=== PATIENT | male | born 1970 | race Two or more races ===

== ENCOUNTER 2019-05-01 17:48 | Inpatient (IN) | payer SELFPAY ==
[~2019-05-01] VITALS: Ht 172.7 cm; Wt 72.6 kg
[2019-05-01] MEDS ORDERED: MORPHINE SULFATE 4 MG/ML VIAL. IV/SQ PRN (20:30)
--- NOTE | 2019-05-01 20:36 | PHYS DOC ---
Past Medical History Past Medical History: Arthritis Past Surgical History: No Surgical History Alcohol Use: None Drug Use: None Adult General Chief Complaint Chief Complaint: OTHER COMPLAINTS HPI HPI Patient is a 48-year-old male who presents with complaint of pain and swelling of scrotum along with lower back pain that has been ongoing for about the last month. Patient states his symptoms are progressively worsening. He states that the swelling in the scrotal area goes down when he lays down and gets worse when he is upright. He currently rates his pain to be about a 6 out of 10. He denies any nausea or vomiting and has had no diarrhea. Patient denies any fever.[] Review of Systems Review of Systems Constitutional: Denies fever or chills [] Respiratory: Denies cough or shortness of breath [] Cardiovascular: No additional information not addressed in HPI [] GI: Complains of lower abdominal pain without vomiting or diarrhea [] : Admits to dysuria and scrotal swelling without hematuria [] Musculoskeletal: Complains of lower back pain [] All other systems were reviewed and found to be within normal limits, except as documented in this note. Current Medications Current Medications Current Medications Medications (Trade) Dose Ordered Sig/Harley Start Time Stop Time Status Last Admin Dose Admin Lorazepam (Ativan Inj) 1 mg 1X ONCE 05/01/19 23:00 05/01/19 23:01 Morphine Sulfate (Morphine Sulfate) 4 mg PRN Q15MIN PRN 05/01/19 20:30 05/02/19 20:29 05/01/19 21:17 4 MG Ondansetron HCl (Zofran) 4 mg 1X ONCE 05/01/19 20:45 05/01/19 20:46 DC 05/01/19 21:17 4 MG Allergies Allergies Allergies Coded Allergies Type Severity Reaction Last Updated Verified No Known Drug Allergies 05/01/19 No Physical Exam Physical Exam Constitutional: Well developed, well nourished, no acute distress, non-toxic appearance. [] HENT: Normocephalic, atraumatic, bilateral external ears normal, oropharynx moist, no oral exudates, nose normal. [] Eyes: PERRLA, EOMI, conjunctiva normal, no discharge. [] Neck: Normal range of motion, no tenderness, supple, no stridor. [] Cardiovascular:Heart rate regular rhythm, no murmur [] Lungs & Thorax: Bilateral breath sounds clear to auscultation [] Abdomen: Bowel sounds normal, soft, with suprapubic tenderness. Rectal exam is nontender [] Skin: Warm, dry, no erythema, no rash. [] : Markedly enlarged scrotum which transilluminates with light, consistent with large hydrocele. [] Extremities: No tenderness, no cyanosis, no clubbing, ROM intact, no edema. [] Neurologic: Alert and oriented X 3, no focal deficits noted. [] Current Patient Data Vital Signs Vital Signs Date Time Temp Pulse Resp B/P (MAP) Pulse Ox O2 Delivery O2 Flow Rate FiO2 05/01/19 21:17 Room Air 05/01/19 19:37 97.7 64 16 128/81 (97) 100 97.7 Lab Values Laboratory Tests Test 05/01/19 20:10 05/01/19 20:37 Urine Collection Type Void Urine Color Yellow Urine Clarity Clear Urine pH 5.5 Urine Specific [place] 1.020 Urine Protein Negative mg/dL (NEG-TRACE) Urine Glucose (UA) Negative mg/dL (NEG) Urine Ketones (Stick) Negative mg/dL (NEG) Urine Blood Negative (NEG) Urine Nitrite Negative (NEG) Urine Bilirubin Negative (NEG) Urine Urobilinogen Dipstick 0.2 mg/dL (0.2 mg/dL) Urine Leukocyte Esterase Negative (NEG) Urine RBC 0 /HPF (0-2) Urine WBC 5-10 /HPF (0-4) Urine Squamous Epithelial Cells Occ /LPF Urine Bacteria 0 /HPF (0-FEW) Urine Mucus Marked /LPF White Blood Count 6.4 x10^3/uL (4.0-11.0) Red Blood Count 3.91 x10^6/uL (4.30-5.70) L Hemoglobin 11.7 g/dL (13.0-17.5) L Hematocrit 34.3 % (39.0-53.0) L Mean Corpuscular Volume 88 fL (79-100) Mean Corpuscular Hemoglobin 30 pg (25-35) Mean Corpuscular Hemoglobin Concent 34 g/dL (31-37) Red Cell Distribution Width 17.1 % (11.5-14.5) H Platelet Count 294 x10^3/uL (140-400) Neutrophils (%) (Auto) 73 % (31-73) Lymphocytes (%) (Auto) 15 % (24-48) L Monocytes (%) (Auto) 9 % (0-9) Eosinophils (%) (Auto) 1 % (0-3) Basophils (%) (Auto) 1 % (0-3) Neutrophils # (Auto) 4.7 x10^3/uL (1.8-7.7) Lymphocytes # (Auto) 1.0 x10^3/uL (1.0-4.8) Monocytes # (Auto) 0.6 x10^3/uL (0.0-1.1) Eosinophils # (Auto) 0.1 x10^3/uL (0.0-0.7) Basophils # (Auto) 0.1 x10^3/uL (0.0-0.2) Sodium Level 141 mmol/L (136-145) Potassium Level 4.5 mmol/L (3.5-5.1) Chloride Level 105 mmol/L (98-107) Carbon Dioxide Level 25 mmol/L (21-32) Anion Gap 11 (6-14) Blood Urea Nitrogen 22 mg/dL (8-26) Creatinine 2.0 mg/dL (0.7-1.3) H Estimated GFR (Cockcroft-Gault) 35.5 BUN/Creatinine Ratio 11 (6-20) Glucose Level 81 mg/dL (70-99) Calcium Level 9.5 mg/dL (8.5-10.1) Total Bilirubin 0.3 mg/dL (0.2-1.0) Aspartate Amino Transferase (AST) 31 U/L (15-37) Alanine Aminotransferase (ALT) 16 U/L (16-63) Alkaline Phosphatase 115 U/L (46-116) Total Protein 7.0 g/dL (6.4-8.2) Albumin 3.2 g/dL (3.4-5.0) L Albumin/Globulin Ratio 0.8 (1.0-1.7) L Lipase 71 U/L (73-393) L Prostate Specific Antigen 0.95 ng/mL (0.00-4.00) Laboratory Tests 05/01/19 20:37 Laboratory Tests 05/01/19 20:37 EKG EKG [] Radiology/Procedures Radiology/Procedures [] Impressions: PROCEDURE: CT ABDOMEN PELVIS WO CONTRAST CT ABDOMEN PELVIS WO CONTRAST INDICATION: Scrotal swelling and lower abdominal/back pain EXAM: Noncontrast CT of the abdomen and pelvis. Coronal and sagittal reformatted images were performed. PQRS compliance statement: One or more of the following individualized dose reduction techniques were utilized for this examination: 1. Automated exposure control 2. Adjustment of the mA and/or kV according to patient size 3. Use of iterative reconstruction technique COMPARISON: None FINDINGS: No free air, free fluid, or fluid collection. Lower chest: The visualized lower lungs are aerated. No pleural or pericardial effusion. ABDOMEN: Liver: The noncontrast liver is homogeneous in attenuation. Gallbladder and biliary: Normal gallbladder without radiopaque stone. Normal caliber bile ducts. Spleen: Normal spleen. Pancreas: The noncontrast pancreas is homogeneous in attenuation without peripancreatic inflammatory changes. Adrenal glands: Normal adrenal glands. Kidneys and ureters: No opaque urinary calculi. Normal kidneys and ureters. GI tract: The stomach is decompressed and poorly evaluated. Normal caliber small bowel and colon. Normal appendix. Vascular structures: Normal caliber abdominal aorta. Lymph nodes: Extensive inguinal, iliac chain, pelvic sidewall, and retroperitoneal lymphadenopathy with insurance claims representative lymph nodes as follows: Enlarged right para-aortic lymph node measuring 2.2 x 1.4 cm (series 2 image 30), enlarged right iliac chain lymph node measuring 2.0 x 2.4 cm (image 65). PELVIS: Genitourinary system: Asymmetric irregular thickening of the posterior bladder. SKELETAL STRUCTURES AND SOFT TISSUES: Infiltrative lytic process with destruction of much of the left iliac bone. Asymmetric enlargement of the left iliac is muscle. Mixed lytic and sclerotic lesion in the L4 vertebral body. Scrotal edema and/or hydroceles. IMPRESSION: 1. Marked asymmetric thickening and irregularity of the posterior bladder, concerning for primary bladder neoplasm. 2. 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 Additional small mixed lytic and sclerotic lesion in the L4 vertebral body, which might also represent osseous metastatic disease. Attention on follow-up imaging. 3. Extensive inguinal, iliac chain, pelvic sidewall, and retroperitoneal lymphadenopathy likely representing metastatic disease. Findings were called to the emergency department at 10:15 PM on 05/01/2019. FOR INTERNAL CODING PURPOSES RESULT CODE: (C) Electronically signed by: Hari Dunn MD (05/01/2019 10:24 PM) Course & Med Decision Making Course & Med Decision Making Pertinent Labs and Imaging studies reviewed. (See chart for details) [] Dragon Disclaimer Dragon Disclaimer This electronic medical record was generated, in whole or in part, using a voice recognition dictation system. Departure Departure Impression: Primary Impression: Bladder mass Additional Impressions: Lytic bone lesions on xray Hydrocele in adult Disposition: 09 ADMITTED INPATIENT Admitting Physician: HIMTyson Condition: GOOD Referrals: NO PCP (PCP) Problem Qualifiers JO ANN OAKLEY Jr. DO May 01, 2019 20:36
[2019-05-01] MEDS ORDERED: ONDANSETRON PF 4 MG/2 ML VIAL. IV ONE (20:45)
[2019-05-01 20:46] LABS: BASO # 0.1 x10^3/uL (0.0-0.2); BASO % 1 % (0-3); EOS # 0.1 x10^3/uL (0.0-0.7); EOS % 1 % (0-3); HEMATOCRIT 34.3 % (39.0-53.0); HEMOGLOBIN 11.7 g/dL (13.0-17.5); LYMPH % 15 % (24-48); MEAN CORPUSCULAR HEMOGLOBIN 30 pg (25-35); MEAN CORPUSCULAR HGB CONC 34 g/dL (31-37); MEAN CORPUSCULAR VOLUME 88 fL (79-100); MONO # 0.6 x10^3/uL (0.0-1.1); MONO % 9 % (0-9); NEUT # 4.7 x10^3/uL (1.8-7.7); NEUT % 73 % (31-73); PLATELET COUNT 294 x10^3/uL (140-400); RED BLOOD COUNT 3.91 x10^6/uL (4.30-5.70); RED CELL DISTRIBUTION WIDTH 17.1 % (11.5-14.5); WHITE BLOOD COUNT 6.4 x10^3/uL (4.0-11.0)
[2019-05-01 20:56] LABS: CALCIUM 9.5 mg/dL (8.5-10.1); GFR 35.5; POTASSIUM 4.5 mmol/L (3.5-5.1)
[2019-05-01 21:02] LABS: ALBUMIN 3.2 g/dL (3.4-5.0); ALBUMIN/GLOBULIN RATIO 0.8 (1.0-1.7); TOTAL BILIRUBIN 0.3 mg/dL (0.2-1.0)
[2019-05-01 21:28] LABS: BILIRUBIN,URINE NEGATIVE (NEG); COLOR,URINE YELLOW; NITRITE,URINE NEGATIVE (NEG); PH,URINE 5.5; PROTEIN,URINE NEGATIVE (NEG-TRACE); UROBILINOGEN,URINE 0.2 mg/dL (0.2 mg/dL)
[2019-05-01 21:34] LABS: CLARITY,URINE CLEAR
[2019-05-01 21:38] LABS: BACTERIA,URINE 0 /HPF (0-FEW); RBC,URINE 0 /HPF (0-2); SQUAMOUS EPITHELIAL CELL,UR OCC /LPF
--- NOTE | 2019-05-01 21:42 | RAD ---
Testicular and scrotal ultrasound History: Scrotal swelling for one month, pain for 3 days bilaterally Comparison: None. Findings: Multiple grayscale, color, and duplex spectral analysis waveform images of the testicles and scrotum are submitted. Right testicle measured 3.4 x 2 x 5 x 2.2 cm. Left testicle measured 2.9 x 2.4 x 2.1 cm. No intratesticular mass is demonstrated on either side. There is normal color flow and low resistance vascularity of interrogated intratesticular vessels bilaterally. There are small bilateral hydroceles. There is severe heterogeneity and edema of the soft tissues of the scrotum. Inferior to the testicles in the soft tissues, there is very prominent heterogeneous echogenicity with areas of hypervascularity, diffuse internal echoes present. Impression: 1. There is no evidence of intratesticular mass or testicular torsion. There is severe edema of the scrotal soft tissues, evidence of cellulitis and phlegmon, complex appearing fluid inferior to the bilateral testicles although difficult to visualize discrete wall. Electronically signed by: Hari Cuevas MD (05/01/2019 9:39 PM) [facility]
--- NOTE | 2019-05-01 22:27 | RAD ---
CT ABDOMEN PELVIS WO CONTRAST INDICATION: Scrotal swelling and lower abdominal/back pain EXAM: Noncontrast CT of the abdomen and pelvis. Coronal and sagittal reformatted images were performed. PQRS compliance statement: One or more of the following individualized dose reduction techniques were utilized for this examination: 1. Automated exposure control 2. Adjustment of the mA and/or kV according to patient size 3. Use of iterative reconstruction technique COMPARISON: None FINDINGS: No free air, free fluid, or fluid collection. Lower chest: The visualized lower lungs are aerated. No pleural or pericardial effusion. ABDOMEN: Liver: The noncontrast liver is homogeneous in attenuation. Gallbladder and biliary: Normal gallbladder without radiopaque stone. Normal caliber bile ducts. Spleen: Normal spleen. Pancreas: The noncontrast pancreas is homogeneous in attenuation without peripancreatic inflammatory changes. Adrenal glands: Normal adrenal glands. Kidneys and ureters: No opaque urinary calculi. Normal kidneys and ureters. GI tract: The stomach is decompressed and poorly evaluated. Normal caliber small bowel and colon. Normal appendix. Vascular structures: Normal caliber abdominal aorta. Lymph nodes: Extensive inguinal, iliac chain, pelvic sidewall, and retroperitoneal lymphadenopathy with key account representative lymph nodes as follows: Enlarged right para-aortic lymph node measuring 2.2 x 1.4 cm (series 2 image 30), enlarged right iliac chain lymph node measuring 2.0 x 2.4 cm (image 65). PELVIS: Genitourinary system: Asymmetric irregular thickening of the posterior bladder. SKELETAL STRUCTURES AND SOFT TISSUES: Infiltrative lytic process with destruction of much of the left iliac bone. Asymmetric enlargement of the left iliac is muscle. Mixed lytic and sclerotic lesion in the L4 vertebral body. Scrotal edema and/or hydroceles. IMPRESSION: 1. Marked asymmetric thickening and irregularity of the posterior bladder, concerning for primary bladder neoplasm. 2. 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 Additional small mixed lytic and sclerotic lesion in the L4 vertebral body, which might also represent osseous metastatic disease. Attention on follow-up imaging. 3. Extensive inguinal, iliac chain, pelvic sidewall, and retroperitoneal lymphadenopathy likely representing metastatic disease. Findings were called to the emergency department at 10:15 PM on 05/01/2019. FOR INTERNAL CODING PURPOSES RESULT CODE: (C) Electronically signed by: Hari Dunn MD (05/01/2019 10:24 PM) [id number]
[2019-05-01] MEDS ORDERED: ONDANSETRON PF 4 MG/2 ML VIAL. IV PRN (23:15)
[2019-05-02] VITALS (7 sets, daily range): BP systolic 102–119; BP diastolic 49–74
--- NOTE | 2019-05-02 00:02 | NUR ---
The patient, OPAL CARPENTER, 48 y/o, M admitted by JAREK LINARES MD, was given written information regarding hospital policies, unit procedures and contact persons. Patient was transported from ED to room 440 via bed with and daughter at bedside. RN performed a head to toe assessment at this time, VSS, afebrile and pain rated 0/10 at the moment. Bed is in lowest locked position and call light is within reach. Valuables were checked and left in the room with the patient. RN will continue to monitor patient closely.
[2019-05-02] MEDS: IV NORMAL SALINE 1000ML BAG 1,000 ML IV SCH ×5 (00:40→21:36)
[2019-05-02] MEDS: fentaNYL PF VIAL 100 MCG/2 ML VIAL IV PRN ×2 (05:44→21:36)
[2019-05-02 07:48] LABS: BASO % 1 % (0-3); EOS # 0.1 x10^3/uL (0.0-0.7); EOS % 2 % (0-3); HEMATOCRIT 34.3 % (39.0-53.0); HEMOGLOBIN 11.3 g/dL (13.0-17.5); LYMPH # 0.9 x10^3/uL (1.0-4.8); LYMPH % 16 % (24-48); MEAN CORPUSCULAR HEMOGLOBIN 29 pg (25-35); MEAN CORPUSCULAR HGB CONC 33 g/dL (31-37); MEAN CORPUSCULAR VOLUME 88 fL (79-100); MONO # 0.4 x10^3/uL (0.0-1.1); MONO % 7 % (0-9); NEUT # 4.3 x10^3/uL (1.8-7.7); NEUT % 76 % (31-73); PLATELET COUNT 280 x10^3/uL (140-400); RED BLOOD COUNT 3.89 x10^6/uL (4.30-5.70); RED CELL DISTRIBUTION WIDTH 17.6 % (11.5-14.5); WHITE BLOOD COUNT 5.7 x10^3/uL (4.0-11.0)
[2019-05-02 08:20] LABS: CALCIUM 9.2 mg/dL (8.5-10.1); GFR 35.5; POTASSIUM 4.5 mmol/L (3.5-5.1)
--- NOTE | 2019-05-02 10:37 | PDOC1 ---
History and Physical Date of Admission Date of Admission DATE: 05/02/19 TIME: 10:37 Identification/Chief Complaint Chief Complaint presented to ER with complaint of pain and swelling of scrotum along with lower back pain that has been ongoing for about the last month. states his symptoms are progressively worsening. swelling in the scrotal area goes down when he lays down and gets worse when he is upright. ct concerning for bladder mass Past Medical History Past Medical History Past Medical History Past Medical History Past Medical History: Arthritis Past Surgical History: No Surgical History Alcohol Use: None Drug Use: None Family History Family History: Hypertension Social History Smoke: No ALCOHOL: none Drugs: None Current Problem List Problem List Problems Medical Problems: (1) Bladder mass Status: Acute (2) Hydrocele in adult Status: Acute (3) Lytic bone lesions on xray Status: Acute Current Medications Current Medications Current Medications Morphine Sulfate (Morphine Sulfate) 4 mg PRN Q15MIN PRN IV/SQ PAIN GREATER THAN 3/10 Last administered on 05/01/19at 21:17; Start 05/01/19 at 20:30; Stop 05/02/19 at 20:29 Ondansetron HCl (Zofran) 4 mg 1X ONCE IV Last administered on 05/01/19at 21:17; Start 05/01/19 at 20:45; Stop 05/01/19 at 20:46; Status DC Lorazepam (Ativan Inj) 1 mg 1X ONCE IV Last administered on 05/01/19at 23:14; Start 05/01/19 at 23:00; Stop 05/01/19 at 23:01; Status DC Ondansetron HCl (Zofran) 4 mg PRN Q8HRS PRN IV NAUSEA/VOMITING 1ST CHOICE; Start 05/01/19 at 23:15; Stop 05/02/19 at 23:14 Fentanyl Citrate (Fentanyl 2ml Vial) 50 mcg PRN Q1HR PRN IV SEVERE PAIN 7-10 Last administered on 05/02/19at 05:44; Start 05/01/19 at 23:15; Stop 05/02/19 at 23:14 Sodium Chloride 1,000 ml @ 100 mls/hr Q10H IV Last administered on 05/02/19at 00:40; Start 05/01/19 at 23:30; Stop 05/02/19 at 23:29 Allergies Allergies: Coded Allergies: No Known Drug Allergies (Unverified , 05/01/19) ROS Review of System Review of Systems Review of Systems Constitutional: Denies fever or chills [] Respiratory: Denies cough or shortness of breath [] Cardiovascular: No additional information not addressed in HPI [] GI: Complains of lower abdominal pain without vomiting or diarrhea [] : Admits to dysuria and scrotal swelling without hematuria [] Musculoskeletal: Complains of lower back pain [] 14 pt systems were reviewed and found to be within normal limits, except as documented ALLERGY AND IMMUNOLOGY: No: Hives, Insect Bite Sensitivity, Itchy/Watery Eyes, Nasal Congestion, Post Nasal Drip, Seasonal Allergies, Other Hematological and Lymphatic: No: Bleeding Problems, Blood Clots, Blood Transfusions, Brusing, Night Sweats, Pallor, Swollen Lymph Nodes, Other Respiratory: No: Cough, Hemoptysis, Orthopnea, Pleuritic Pain, Shortness of breath, SOB with excertion, Sputum Changes, Stridor, Tachypnea, Wheezing, Other Cardiovascular: No Chest Pain, No Palpitations, No Orthopnea, No Paroxysmal Noc. Dyspnea, No Edema, No Lt Headedness, No Other Physical Exam Physical Exam Physical Exam Physical Exam Constitutional: Well developed, well nourished thin no acute distress, non- toxic appearance. [] HENT: Normocephalic, atraumatic, bilateral external ears normal, oropharynx denis st, no oral exudates, nose normal. [] Eyes: PERRLA, EOMI, conjunctiva normal, no discharge. [] Neck: Normal range of motion, no tenderness, supple, no stridor. [] Cardiovascular:Heart rate regular rhythm, no murmur [] Lungs & Thorax: Bilateral breath sounds clear to auscultation [] Abdomen: Bowel sounds normal, soft, with suprapubic tenderness. Rectal exam is nontender [] Skin: Warm, dry, no erythema, no rash. [] : Markedly enlarged scrotum which transilluminates with light, consistent with large hydrocele. [] Extremities: No tenderness, no cyanosis, no clubbing, ROM intact, no edema. [] Neurologic: Alert and oriented X 3, no focal deficits noted. [] General: Alert, Oriented X3, Cooperative HEENT: EOMI Heart: RRR Abdomen: Soft Extremities: No cyanosis Neuro: Normal speech, Cranial nerves 3-12 NL Psych/Mental Status: Mental status NL, Mood NL Vitals Vitals Vital Signs Date Time Temp Pulse Resp B/P (MAP) Pulse Ox O2 Delivery O2 Flow Rate FiO2 05/02/19 08:16 Room Air 05/02/19 07:00 98.8 86 16 119/70 (86) 96 98.8 Labs Labs Laboratory Tests Test 05/01/19 20:10 05/01/19 20:37 05/02/19 07:35 Urine Collection Type Void Urine Color Yellow Urine Clarity Clear Urine pH 5.5 Urine Specific [place] 1.020 Urine Protein Negative mg/dL (NEG-TRACE) Urine Glucose (UA) Negative mg/dL (NEG) Urine Ketones (Stick) Negative mg/dL (NEG) Urine Blood Negative (NEG) Urine Nitrite Negative (NEG) Urine Bilirubin Negative (NEG) Urine Urobilinogen Dipstick 0.2 mg/dL (0.2 mg/dL) Urine Leukocyte Esterase Negative (NEG) Urine RBC 0 /HPF (0-2) Urine WBC 5-10 /HPF (0-4) Urine Squamous Epithelial Cells Occ /LPF Urine Bacteria 0 /HPF (0-FEW) Urine Mucus Marked /LPF White Blood Count 6.4 x10^3/uL (4.0-11.0) 5.7 x10^3/uL (4.0-11.0) Red Blood Count 3.91 x10^6/uL (4.30-5.70) 3.89 x10^6/uL (4.30-5.70) Hemoglobin 11.7 g/dL (13.0-17.5) 11.3 g/dL (13.0-17.5) Hematocrit 34.3 % (39.0-53.0) 34.3 % (39.0-53.0) Mean Corpuscular Volume 88 fL (79-100) 88 fL (79-100) Mean Corpuscular Hemoglobin 30 pg (25-35) 29 pg (25-35) Mean Corpuscular Hemoglobin Concent 34 g/dL (31-37) 33 g/dL (31-37) Red Cell Distribution Width 17.1 % (11.5-14.5) 17.6 % (11.5-14.5) Platelet Count 294 x10^3/uL (140-400) 280 x10^3/uL (140-400) Neutrophils (%) (Auto) 73 % (31-73) 76 % (31-73) Lymphocytes (%) (Auto) 15 % (24-48) 16 % (24-48) Monocytes (%) (Auto) 9 % (0-9) 7 % (0-9) Eosinophils (%) (Auto) 1 % (0-3) 2 % (0-3) Basophils (%) (Auto) 1 % (0-3) 1 % (0-3) Neutrophils # (Auto) 4.7 x10^3/uL (1.8-7.7) 4.3 x10^3/uL (1.8-7.7) Lymphocytes # (Auto) 1.0 x10^3/uL (1.0-4.8) 0.9 x10^3/uL (1.0-4.8) Monocytes # (Auto) 0.6 x10^3/uL (0.0-1.1) 0.4 x10^3/uL (0.0-1.1) Eosinophils # (Auto) 0.1 x10^3/uL (0.0-0.7) 0.1 x10^3/uL (0.0-0.7) Basophils # (Auto) 0.1 x10^3/uL (0.0-0.2) 0.0 x10^3/uL (0.0-0.2) Sodium Level 141 mmol/L (136-145) 142 mmol/L (136-145) Potassium Level 4.5 mmol/L (3.5-5.1) 4.5 mmol/L (3.5-5.1) Chloride Level 105 mmol/L (98-107) 107 mmol/L (98-107) Carbon Dioxide Level 25 mmol/L (21-32) 24 mmol/L (21-32) Anion Gap 11 (6-14) 11 (6-14) Blood Urea Nitrogen 22 mg/dL (8-26) 24 mg/dL (8-26) Creatinine 2.0 mg/dL (0.7-1.3) 2.0 mg/dL (0.7-1.3) Estimated GFR (Cockcroft-Gault) 35.5 35.5 BUN/Creatinine Ratio 11 (6-20) Glucose Level 81 mg/dL (70-99) 75 mg/dL (70-99) Calcium Level 9.5 mg/dL (8.5-10.1) 9.2 mg/dL (8.5-10.1) Total Bilirubin 0.3 mg/dL (0.2-1.0) Aspartate Amino Transf (AST/SGOT) 31 U/L (15-37) Alanine Aminotransferase (ALT/SGPT) 16 U/L (16-63) Alkaline Phosphatase 115 U/L (46-116) Total Protein 7.0 g/dL (6.4-8.2) Albumin 3.2 g/dL (3.4-5.0) Albumin/Globulin Ratio 0.8 (1.0-1.7) Lipase 71 U/L (73-393) Prostate Specific Antigen 0.95 ng/mL (0.00-4.00) Laboratory Tests Test 05/01/19 20:10 05/01/19 20:37 05/02/19 07:35 Urine Collection Type Void Urine Color Yellow Urine Clarity Clear Urine pH 5.5 Urine Specific [place] 1.020 Urine Protein Negative mg/dL (NEG-TRACE) Urine Glucose (UA) Negative mg/dL (NEG) Urine Ketones (Stick) Negative mg/dL (NEG) Urine Blood Negative (NEG) Urine Nitrite Negative (NEG) Urine Bilirubin Negative (NEG) Urine Urobilinogen Dipstick 0.2 mg/dL (0.2 mg/dL) Urine Leukocyte Esterase Negative (NEG) Urine RBC 0 /HPF (0-2) Urine WBC 5-10 /HPF (0-4) Urine Squamous Epithelial Cells Occ /LPF Urine Bacteria 0 /HPF (0-FEW) Urine Mucus Marked /LPF White Blood Count 6.4 x10^3/uL (4.0-11.0) 5.7 x10^3/uL (4.0-11.0) Red Blood Count 3.91 x10^6/uL (4.30-5.70) 3.89 x10^6/uL (4.30-5.70) Hemoglobin 11.7 g/dL (13.0-17.5) 11.3 g/dL (13.0-17.5) Hematocrit 34.3 % (39.0-53.0) 34.3 % (39.0-53.0) Mean Corpuscular Volume 88 fL (79-100) 88 fL (79-100) Mean Corpuscular Hemoglobin 30 pg (25-35) 29 pg (25-35) Mean Corpuscular Hemoglobin Concent 34 g/dL (31-37) 33 g/dL (31-37) Red Cell Distribution Width 17.1 % (11.5-14.5) 17.6 % (11.5-14.5) Platelet Count 294 x10^3/uL (140-400) 280 x10^3/uL (140-400) Neutrophils (%) (Auto) 73 % (31-73) 76 % (31-73) Lymphocytes (%) (Auto) 15 % (24-48) 16 % (24-48) Monocytes (%) (Auto) 9 % (0-9) 7 % (0-9) Eosinophils (%) (Auto) 1 % (0-3) 2 % (0-3) Basophils (%) (Auto) 1 % (0-3) 1 % (0-3) Neutrophils # (Auto) 4.7 x10^3/uL (1.8-7.7) 4.3 x10^3/uL (1.8-7.7) Lymphocytes # (Auto) 1.0 x10^3/uL (1.0-4.8) 0.9 x10^3/uL (1.0-4.8) Monocytes # (Auto) 0.6 x10^3/uL (0.0-1.1) 0.4 x10^3/uL (0.0-1.1) Eosinophils # (Auto) 0.1 x10^3/uL (0.0-0.7) 0.1 x10^3/uL (0.0-0.7) Basophils # (Auto) 0.1 x10^3/uL (0.0-0.2) 0.0 x10^3/uL (0.0-0.2) Sodium Level 141 mmol/L (136-145) 142 mmol/L (136-145) Potassium Level 4.5 mmol/L (3.5-5.1) 4.5 mmol/L (3.5-5.1) Chloride Level 105 mmol/L (98-107) 107 mmol/L (98-107) Carbon Dioxide Level 25 mmol/L (21-32) 24 mmol/L (21-32) Anion Gap 11 (6-14) 11 (6-14) Blood Urea Nitrogen 22 mg/dL (8-26) 24 mg/dL (8-26) Creatinine 2.0 mg/dL (0.7-1.3) 2.0 mg/dL (0.7-1.3) Estimated GFR (Cockcroft-Gault) 35.5 35.5 BUN/Creatinine Ratio 11 (6-20) Glucose Level 81 mg/dL (70-99) 75 mg/dL (70-99) Calcium Level 9.5 mg/dL (8.5-10.1) 9.2 mg/dL (8.5-10.1) Total Bilirubin 0.3 mg/dL (0.2-1.0) Aspartate Amino Transf (AST/SGOT) 31 U/L (15-37) Alanine Aminotransferase (ALT/SGPT) 16 U/L (16-63) Alkaline Phosphatase 115 U/L (46-116) Total Protein 7.0 g/dL (6.4-8.2) Albumin 3.2 g/dL (3.4-5.0) Albumin/Globulin Ratio 0.8 (1.0-1.7) Lipase 71 U/L (73-393) Prostate Specific Antigen 0.95 ng/mL (0.00-4.00) Images Images CT ABDOMEN PELVIS WO CONTRAST INDICATION: Scrotal swelling and lower abdominal/back pain EXAM: Noncontrast CT of the abdomen and pelvis. Coronal and sagittal reformatted images were performed. PQRS compliance statement: One or more of the following individualized dose reduction techniques were utilized for this examination: 1. Automated exposure control 2. Adjustment of the mA and/or kV according to patient size 3. Use of iterative reconstruction technique COMPARISON: None FINDINGS: No free air, free fluid, or fluid collection. Lower chest: The visualized lower lungs are aerated. No pleural or pericardial effusion. ABDOMEN: Liver: The noncontrast liver is homogeneous in attenuation. Gallbladder and biliary: Normal gallbladder without radiopaque stone. Normal caliber bile ducts. Spleen: Normal spleen. Pancreas: The noncontrast pancreas is homogeneous in attenuation without peripancreatic inflammatory changes. Adrenal glands: Normal adrenal glands. Kidneys and ureters: No opaque urinary calculi. Normal kidneys and ureters. GI tract: The stomach is decompressed and poorly evaluated. Normal caliber small bowel and colon. Normal appendix. Vascular structures: Normal caliber abdominal aorta. Lymph nodes: Extensive inguinal, iliac chain, pelvic sidewall, and retroperitoneal lymphadenopathy with petroleum products sales representative lymph nodes as follows: Enlarged right para-aortic lymph node measuring 2.2 x 1.4 cm (series 2 image 30), enlarged right iliac chain lymph node measuring 2.0 x 2.4 cm (image 65). PELVIS: Genitourinary system: Asymmetric irregular thickening of the posterior bladder. SKELETAL STRUCTURES AND SOFT TISSUES: Infiltrative lytic process with destruction of much of the left iliac bone. Asymmetric enlargement of the left iliac is muscle. Mixed lytic and sclerotic lesion in the L4 vertebral body. Scrotal edema and/or hydroceles. IMPRESSION: 1. Marked asymmetric thickening and irregularity of the posterior bladder, concerning for primary bladder neoplasm. 2. 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 Additional small mixed lytic and sclerotic lesion in the L4 vertebral body, which might also represent osseous metastatic disease. Attention on follow-up imaging. 3. Extensive inguinal, iliac chain, pelvic sidewall, and retroperitoneal lymphadenopathy likely representing metastatic disease. Findings were called to the emergency department at 10:15 PM on 05/01/2019. FOR INTERNAL CODING PURPOSES RESULT CODE: (C) Electronically signed by: Som Salamanca MD (05/01/2019 10:24 PM) [facility] DICTATED and SIGNED BY: SOM SALAMANCA MD DATE: 05/01/19 2224 VTE Prophylaxis Ordered VTE Prophylaxis Devices: Yes VTE Pharmacological Prophylaxi: Yes Assessment/Plan Assessment/Plan Impression: Bladder mass Marked asymmetric thickening and irregularity of the posterior bladder,concerning for primary bladder neoplasm. 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 Additional small mixed lytic and sclerotic lesion in the L4 vertebral body, which might also represent osseous metastatic disease. Attention on follow-up imaging. Extensive inguinal, iliac chain, pelvic sidewall, and retroperitoneal lymphadenopathy likely representing metastatic disease. Lytic bone lesions on xray Hydrocele renal failure anemia ADMITTED UROLOGY CONSULT IV PAIN CONTROL dvt prophylaxis gi prophylaxis nephrology consult 78 min pt exam, chart review, > 50% of time spent with exam, chart review, pt care coordination NIKKI HUIZAR MD May 02, 2019 10:37
--- NOTE | 2019-05-02 11:10 | NUR ---
Spoke with Jose at [facility] in [place], [place], pt's perferred pharmacy Re: home med list. Med list received.
[2019-05-02] MEDS ORDERED: FOLI1TAB16 PO (11:19)
[2019-05-02] MEDS ORDERED: METH25VI27 SQ (11:19)
[2019-05-02 11:29] LABS: PROTHROMBIN TIME PATIENT 13.7 SEC (11.7-14.0)
--- NOTE | 2019-05-02 11:44 | NUR ---
Assumed pt care at 1035. Pt in bed, family at bedside, call light within reach. Requesting ice chips. Routine consults called to Dr. Doherty and Dr. Reddy. Will continue to monitor.
--- NOTE | 2019-05-02 12:22 | NUR ---
SS following for discharge planning. SS reviewed pt chart. Pt is self pay pt. HCFS following for self pay status. Pt is from home with spouse and is currently on room air. No discharge needs noted at this time. SS will continue to follow for discharge planning.
[2019-05-02] MEDS: HEPARIN for SUB-Q USE 5,000 UNIT/ML VIAL. SQ SCH ×2 (14:00→21:41)
[2019-05-02] MEDS ORDERED: ZOLPIDEM 5 MG TABLET. PO PRN (16:30)
[2019-05-02] MEDS ORDERED: DOCUSATE SODIUM 100 MG CAPSULE. PO PRN (16:30)
[2019-05-02] MEDS ORDERED: MAG HYDROX/ALUMINUM HYD/SIMETH 30 ML ORAL.SUSP PO PRN (16:30)
[2019-05-02] MEDS ORDERED: ONDANSETRON PF 4 MG/2 ML VIAL. IV PRN (16:30)
[2019-05-02] MEDS ORDERED: guaiFENesin ORAL 200 MG/10 ML LIQUID. PO PRN (16:30)
[2019-05-02] MEDS ORDERED: cloNIDine HCL 0.1 MG TABLET PO PRN (16:30)
[2019-05-02] MEDS ORDERED: LORazepam 0.5 MG TABLET PO PRN (16:30)
[2019-05-02] MEDS ORDERED: 0.9 % SODIUM CHLORIDE 10 ML DISP.SYRIN. IV PRN (16:30)
[2019-05-02] MEDS: IPRATRPIUM/ALBUTEROL 0.5/2.5MG 3 ML NEBU. NEB SCH ×4 (16:30→23:10)
--- NOTE | 2019-05-02 17:12 | NUR ---
fluids non admin on EMAR. Current bag is still infusing.
[2019-05-03 03:00] VITALS: BP 103/61
--- NOTE | 2019-05-03 04:10 | NUR ---
Report received from BELKIS Humphrey and assumed care of patient at this time. Patient resting with call light within reach, will continue to monitor.
[2019-05-03] MEDS: ACETAMINOPHEN 325 MG TABLET. PO PRN ×2 (06:17→21:07)
[2019-05-03] MEDS: PANTOPRAZOLE 40 MG TABLET.DR. PO SCH (06:17)
[2019-05-03] MEDS: HEPARIN for SUB-Q USE 5,000 UNIT/ML VIAL. SQ SCH ×3 (06:22→21:16)
[2019-05-03 07:00] VITALS: BP 102/62
[2019-05-03] MEDS: IPRATRPIUM/ALBUTEROL 0.5/2.5MG 3 ML NEBU. NEB SCH ×4 (09:09→19:58)
--- NOTE | 2019-05-03 10:29 | PDOC2 ---
CONSULT Date of Consult Date of Consult DATE: 05/03/19 TIME: 10:27 Source Source: Caregiver, Chart review History of Present Illness Reason for Visit: Pt is a male, Non guinean speaking Presented to ER with complaint of pain and swelling of scrotum along with lower back pain that has been ongoing for about the last month. states his symptoms are progressively worsening. swelling in the scrotal area goes down when he lays down and gets worse when he is upright. ct concerning for bladder mass Has been taking Aleve or Advil for past 2-3 months 3-4 /day . PCP at [facility] [place] . Denies any known Hx of CKD or DM Denies any N/V/D. No CP or SOB, No urinary complaints Family History Family History: Hypertension Social History No ALCOHOL: none Drugs: None Current Problem List Problem List Problems Medical Problems: (1) Bladder mass Status: Acute (2) Hydrocele in adult Status: Acute (3) Lytic bone lesions on xray Status: Acute Current Medications Current Medications Current Medications Morphine Sulfate (Morphine Sulfate) 4 mg PRN Q15MIN PRN IV/SQ PAIN GREATER THAN 3/10 Last administered on 05/01/19at 21:17; Start 05/01/19 at 20:30; Stop 05/02/19 at 20:29; Status DC Ondansetron HCl (Zofran) 4 mg 1X ONCE IV Last administered on 05/01/19at 21:17; Start 05/01/19 at 20:45; Stop 05/01/19 at 20:46; Status DC Lorazepam (Ativan Inj) 1 mg 1X ONCE IV Last administered on 05/01/19at 23:14; Start 05/01/19 at 23:00; Stop 05/01/19 at 23:01; Status DC Ondansetron HCl (Zofran) 4 mg PRN Q8HRS PRN IV NAUSEA/VOMITING 1ST CHOICE; Start 05/01/19 at 23:15; Stop 05/02/19 at 23:14; Status DC Fentanyl Citrate (Fentanyl 2ml Vial) 50 mcg PRN Q1HR PRN IV SEVERE PAIN 7-10 Last administered on 05/02/19at 21:36; Start 05/01/19 at 23:15; Stop 05/02/19 at 23:14; Status DC Sodium Chloride 1,000 ml @ 100 mls/hr Q10H IV Last administered on 05/02/19at 12:26; Start 05/01/19 at 23:30; Stop 05/02/19 at 23:29; Status DC Heparin Sodium (Porcine) (Heparin Sodium) 5,000 unit Q8HRS SQ Last administered on 05/03/19at 06:23; Start 05/02/19 at 14:00 Pantoprazole Sodium (Protonix) 40 mg DAILYAC PO Last administered on 05/03/19at 06:23; Start 05/03/19 at 07:30 Sodium Chloride (Normal Saline Flush) 3 ml QSHIFT PRN IV AFTER MEDS AND BLOOD DRAWS; Start 05/02/19 at 16:30 Sodium Chloride 1,000 ml @ 100 mls/hr Q10H IV Last administered on 05/02/19at 21:36; Start 05/02/19 at 16:25 Ondansetron HCl (Zofran) 4 mg PRN Q4HRS PRN IV NAUSEA/VOMITING; Start 05/02/19 at 16:30 Zolpidem Tartrate (Ambien) 5 mg PRN QHS PRN PO INSOMNIA; Start 05/02/19 at 16:30 Acetaminophen (Tylenol) 650 mg PRN Q4HRS PRN PO TEMP OVER 100.4F OR MILD PAIN Last administered on 05/03/19at 06:23; Start 05/02/19 at 16:30 Al Hydroxide/Mg Hydroxide (Mylanta Plus Xs) 30 ml PRN DAILY PRN PO HEARTBURN / GAS; Start 05/02/19 at 16:30 Clonidine HCl (Catapres) 0.1 mg PRN Q6HRS PRN PO SBP>160 OR DBP>90; Start 05/02/19 at 16:30 Docusate Sodium (Colace) 100 mg PRN BID PRN PO CONSTIPATION; Start 05/02/19 at 16:30 Albuterol/ Ipratropium (Duoneb) 3 ml Q4HRS NEB Last administered on 05/03/19at 09:10; Start 05/02/19 at 16:30 Guaifenesin (Robitussin) 200 mg PRN Q4HRS PRN PO COUGH; Start 05/02/19 at 16:30 Lorazepam (Ativan) 0.5 mg PRN Q4HRS PRN PO ANXIETY / AGITATION; Start 05/02/19 at 16:30 Active Scripts Active Reported Methotrexate (Methotrexate Sodium) 25 Mg/1 Ml Vial 25 Mg SQ WEEKLY Folic Acid 1 Mg Tablet 1 Tab PO DAILY Allergies Allergies: Coded Allergies: No Known Drug Allergies (Unverified , 05/01/19) ROS Review of System Per HPI- Obtained from daughters, as Pt non guinean speaking Physical Exam Physical Exam General: NAD HEENT: OM moist Neck supple Heart: RRR Lungs CTA Abdomen: Soft, NT Extremities: No cyanosis, No edema Neuro: Normal speech, Cranial nerves 3-12 NL Psych/Mental Status: Mental status NL, Mood NL - NO Batres Skin No rash Vital Signs Vital Signs Date Time Temp Pulse Resp B/P (MAP) Pulse Ox O2 Delivery O2 Flow Rate FiO2 05/03/19 09:10 96 Room Air 05/03/19 07:00 98.2 66 20 102/62 (75) 98.2 Assessment & Plan RIKI - Baseline unknown Etiology - AIN vs ATN, Hx of NSAID use UA unremarkable,no micr hematuria or overt proteinuria CT scan Kidneys unremar kable E-Lytes stable Supportive care, IV Hydration, strict I/O Monitor, avoid Nephrotoxins Bladder mass- Marked asymmetric thickening and irregularity of the posterior bladder,concerning for primary bladder neoplasm. 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 Additional small mixed lytic and sclerotic lesion in the L4 vertebral body, which might also represent osseous metastatic disease. Extensive inguinal, iliac chain, pelvic sidewall, and retroperitoneal lymphadenopathy likely representing metastatic disease. Lytic bone lesions on xray Consult Urology/Oncology NSAID use- recently Hydrocele - Per urology Anemia- suspect sec to above Stable Hgb 11 Pre=diabetes- per patient Labs Labs Laboratory Tests Test 05/01/19 20:10 05/01/19 20:37 05/02/19 07:35 Urine Collection Type Void Urine Color Yellow Urine Clarity Clear Urine pH 5.5 Urine Specific [place] 1.020 Urine Protein Negative mg/dL (NEG-TRACE) Urine Glucose (UA) Negative mg/dL (NEG) Urine Ketones (Stick) Negative mg/dL (NEG) Urine Blood Negative (NEG) Urine Nitrite Negative (NEG) Urine Bilirubin Negative (NEG) Urine Urobilinogen Dipstick 0.2 mg/dL (0.2 mg/dL) Urine Leukocyte Esterase Negative (NEG) Urine RBC 0 /HPF (0-2) Urine WBC 5-10 /HPF (0-4) Urine Squamous Epithelial Cells Occ /LPF Urine Bacteria 0 /HPF (0-FEW) Urine Mucus Marked /LPF White Blood Count 6.4 x10^3/uL (4.0-11.0) 5.7 x10^3/uL (4.0-11.0) Red Blood Count 3.91 x10^6/uL (4.30-5.70) 3.89 x10^6/uL (4.30-5.70) Hemoglobin 11.7 g/dL (13.0-17.5) 11.3 g/dL (13.0-17.5) Hematocrit 34.3 % (39.0-53.0) 34.3 % (39.0-53.0) Mean Corpuscular Volume 88 fL (79-100) 88 fL (79-100) Mean Corpuscular Hemoglobin 30 pg (25-35) 29 pg (25-35) Mean Corpuscular Hemoglobin Concent 34 g/dL (31-37) 33 g/dL (31-37) Red Cell Distribution Width 17.1 % (11.5-14.5) 17.6 % (11.5-14.5) Platelet Count 294 x10^3/uL (140-400) 280 x10^3/uL (140-400) Neutrophils (%) (Auto) 73 % (31-73) 76 % (31-73) Lymphocytes (%) (Auto) 15 % (24-48) 16 % (24-48) Monocytes (%) (Auto) 9 % (0-9) 7 % (0-9) Eosinophils (%) (Auto) 1 % (0-3) 2 % (0-3) Basophils (%) (Auto) 1 % (0-3) 1 % (0-3) Neutrophils # (Auto) 4.7 x10^3/uL (1.8-7.7) 4.3 x10^3/uL (1.8-7.7) Lymphocytes # (Auto) 1.0 x10^3/uL (1.0-4.8) 0.9 x10^3/uL (1.0-4.8) Monocytes # (Auto) 0.6 x10^3/uL (0.0-1.1) 0.4 x10^3/uL (0.0-1.1) Eosinophils # (Auto) 0.1 x10^3/uL (0.0-0.7) 0.1 x10^3/uL (0.0-0.7) Basophils # (Auto) 0.1 x10^3/uL (0.0-0.2) 0.0 x10^3/uL (0.0-0.2) Sodium Level 141 mmol/L (136-145) 142 mmol/L (136-145) Potassium Level 4.5 mmol/L (3.5-5.1) 4.5 mmol/L (3.5-5.1) Chloride Level 105 mmol/L (98-107) 107 mmol/L (98-107) Carbon Dioxide Level 25 mmol/L (21-32) 24 mmol/L (21-32) Anion Gap 11 (6-14) 11 (6-14) Blood Urea Nitrogen 22 mg/dL (8-26) 24 mg/dL (8-26) Creatinine 2.0 mg/dL (0.7-1.3) 2.0 mg/dL (0.7-1.3) Estimated GFR (Cockcroft-Gault) 35.5 35.5 BUN/Creatinine Ratio 11 (6-20) Glucose Level 81 mg/dL (70-99) 75 mg/dL (70-99) Calcium Level 9.5 mg/dL (8.5-10.1) 9.2 mg/dL (8.5-10.1) Total Bilirubin 0.3 mg/dL (0.2-1.0) Aspartate Amino Transf (AST/SGOT) 31 U/L (15-37) Alanine Aminotransferase (ALT/SGPT) 16 U/L (16-63) Alkaline Phosphatase 115 U/L (46-116) Total Protein 7.0 g/dL (6.4-8.2) Albumin 3.2 g/dL (3.4-5.0) Albumin/Globulin Ratio 0.8 (1.0-1.7) Lipase 71 U/L (73-393) Prostate Specific Antigen 0.95 ng/mL (0.00-4.00) Prothrombin Time 13.7 SEC (11.7-14.0) Prothromb Time International Ratio 1.1 (0.8-1.1) Review All relevant outside records, renal labs, imaging studies, telemetry/EKG's were reviewed. Images Images CT abdomen without contrast-- Gallbladder and biliary: Normal gallbladder without radiopaque stone. Normal caliber bile ducts. Spleen: Normal spleen. Pancreas: The noncontrast pancreas is homogeneous in attenuation without peripancreatic inflammatory changes. Adrenal glands: Normal adrenal glands. Kidneys and ureters: No opaque urinary calculi. Normal kidneys and ureters. GI tract: The stomach is decompressed and poorly evaluated. Normal caliber small bowel and colon. Normal appendix. Vascular structures: Normal caliber abdominal aorta. Lymph nodes: Extensive inguinal, iliac chain, pelvic sidewall, and retroperitoneal lymphadenopathy with truck sales representative lymph nodes as follows: Enlarged right para-aortic lymph node measuring 2.2 x 1.4 cm (series 2 image 30), enlarged right iliac chain lymph node measuring 2.0 x 2.4 cm (image 65). PELVIS: Genitourinary system: Asymmetric irregular thickening of the posterior bladder. SKELETAL STRUCTURES AND SOFT TISSUES: Infiltrative lytic process with destruction of much of the left iliac bone. Asymmetric enlargement of the left iliac is muscle. Mixed lytic and sclerotic lesion in the L4 vertebral body. Scrotal edema and/or hydroceles. IMPRESSION: 1. Marked asymmetric thickening and irregularity of the posterior bladder, concerning for primary bladder neoplasm. 2. 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 Additional small mixed lytic and sclerotic lesion in the L4 vertebral body, which might also represent osseous metastatic disease. Attention on follow-up imaging. 3. Extensive inguinal, iliac chain, pelvic sidewall, and retroperitoneal lymphadenopathy likely representing metastatic disease. EDITA GRAHAM MD May 03, 2019 10:29
--- NOTE | 2019-05-03 10:44 | PDOC ---
PROGRESS NOTES History of Present Illness History of Present Illness VTE Prophylaxis Ordered VTE Prophylaxis Devices: Yes VTE Pharmacological Prophylaxi: Yes Assessment/Plan Assessment/Plan Impression: Bladder mass Marked asymmetric thickening and irregularity of the posterior bladder,concerning for primary bladder neoplasm. 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 Additional small mixed lytic and sclerotic lesion in the L4 vertebral body, which might also represent osseous metastatic disease. Attention on follow-up imaging. Extensive inguinal, iliac chain, pelvic sidewall, and retroperitoneal lymphadenopathy likely representing metastatic disease. Lytic bone lesions on xray Hydrocele renal failure anemia There is no evidence of intratesticular mass or testicular torsion. There is severe edema of the scrotal soft tissues, evidence of cellulitis and phlegmon, complex appearing fluid inferior to the bilateral testicles although difficult to visualize discrete wall. 05/03 Pain not well controlled, added iv dilaudid 1.5 mg q 3 hrs prn ADMITTED UROLOGY CONSULT IV PAIN CONTROL dvt prophylaxis gi prophylaxis nephrology consult ONCOLOGY CONSULT IV ANTIBIOTICS, EMPERIC 41 min pt exam, chart review, > 50% of time spent with exam, chart review, pt care coordination Vitals Vitals Vital Signs Date Time Temp Pulse Resp B/P (MAP) Pulse Ox O2 Delivery O2 Flow Rate FiO2 05/03/19 09:10 96 Room Air 05/03/19 07:00 98.2 66 20 102/62 (75) 98.2 Physical Exam Physical Exam Eyes: PERRLA, EOMI, conjunctiva normal, no discharge. [] Neck: Normal range of motion, no tenderness, supple, no stridor. [] Cardiovascular:Heart rate regular rhythm, no murmur [] Lungs & Thorax: Bilateral breath sounds clear to auscultation [] Abdomen: Bowel sounds normal, soft, with suprapubic tenderness. [] Skin: Warm, dry, no erythema, no rash. [] : Markedly enlarged scrotum which transilluminates with light, consistent with large hydrocele. [] Extremities: No tenderness, no cyanosis, no clubbing, ROM intact, no edema. [] Neurologic: Alert and oriented X 3, no focal deficits noted. [] General: Alert, Oriented X3, Cooperative HEENT: EOMI Heart: RRR Abdomen: Soft Extremities: No cyanosis Neuro: Normal speech, Cranial nerves 3-12 NL General: Alert, Oriented X3, Cooperative, mild distress Heart: Regular rate, Normal S1 Lungs: Clear Abdomen: Normal bowel sounds, Soft Extremities: No cyanosis Labs LABS Testicular and scrotal ultrasound History: Scrotal swelling for one month, pain for 3 days bilaterally Comparison: None. Findings: Multiple grayscale, color, and duplex spectral analysis waveform images of the testicles and scrotum are submitted. Right testicle measured 3.4 x 2 x 5 x 2.2 cm. Left testicle measured 2.9 x 2.4 x 2.1 cm. No intratesticular mass is demonstrated on either side. There is normal color flow and low resistance vascularity of interrogated intratesticular vessels bilaterally. There are small bilateral hydroceles. There is severe heterogeneity and edema of the soft tissues of the scrotum. Inferior to the testicles in the soft tissues, there is very prominent heterogeneous echogenicity with areas of hypervascularity, diffuse internal echoes present. Impression: 1. There is no evidence of intratesticular mass or testicular torsion. There is severe edema of the scrotal soft tissues, evidence of cellulitis and phlegmon, complex appearing fluid inferior to the bilateral testicles although difficult to visualize discrete wall. Electronically signed by: Hari Cuevas MD (05/01/2019 9:39 PM) [facility] Assessment and Plan Assessmemt and Plan Problems Medical Problems: (1) Bladder mass Status: Acute (2) Hydrocele in adult Status: Acute (3) Lytic bone lesions on xray Status: Acute Comment Review of Relevant I have reviewed the following items debra (where applicable) has been applied. Labs Laboratory Tests Test 05/01/19 20:10 05/01/19 20:37 05/02/19 07:35 Urine Collection Type Void Urine Color Yellow Urine Clarity Clear Urine pH 5.5 Urine Specific [place] 1.020 Urine Protein Negative mg/dL (NEG-TRACE) Urine Glucose (UA) Negative mg/dL (NEG) Urine Ketones (Stick) Negative mg/dL (NEG) Urine Blood Negative (NEG) Urine Nitrite Negative (NEG) Urine Bilirubin Negative (NEG) Urine Urobilinogen Dipstick 0.2 mg/dL (0.2 mg/dL) Urine Leukocyte Esterase Negative (NEG) Urine RBC 0 /HPF (0-2) Urine WBC 5-10 /HPF (0-4) Urine Squamous Epithelial Cells Occ /LPF Urine Bacteria 0 /HPF (0-FEW) Urine Mucus Marked /LPF White Blood Count 6.4 x10^3/uL (4.0-11.0) 5.7 x10^3/uL (4.0-11.0) Red Blood Count 3.91 x10^6/uL (4.30-5.70) 3.89 x10^6/uL (4.30-5.70) Hemoglobin 11.7 g/dL (13.0-17.5) 11.3 g/dL (13.0-17.5) Hematocrit 34.3 % (39.0-53.0) 34.3 % (39.0-53.0) Mean Corpuscular Volume 88 fL (79-100) 88 fL (79-100) Mean Corpuscular Hemoglobin 30 pg (25-35) 29 pg (25-35) Mean Corpuscular Hemoglobin Concent 34 g/dL (31-37) 33 g/dL (31-37) Red Cell Distribution Width 17.1 % (11.5-14.5) 17.6 % (11.5-14.5) Platelet Count 294 x10^3/uL (140-400) 280 x10^3/uL (140-400) Neutrophils (%) (Auto) 73 % (31-73) 76 % (31-73) Lymphocytes (%) (Auto) 15 % (24-48) 16 % (24-48) Monocytes (%) (Auto) 9 % (0-9) 7 % (0-9) Eosinophils (%) (Auto) 1 % (0-3) 2 % (0-3) Basophils (%) (Auto) 1 % (0-3) 1 % (0-3) Neutrophils # (Auto) 4.7 x10^3/uL (1.8-7.7) 4.3 x10^3/uL (1.8-7.7) Lymphocytes # (Auto) 1.0 x10^3/uL (1.0-4.8) 0.9 x10^3/uL (1.0-4.8) Monocytes # (Auto) 0.6 x10^3/uL (0.0-1.1) 0.4 x10^3/uL (0.0-1.1) Eosinophils # (Auto) 0.1 x10^3/uL (0.0-0.7) 0.1 x10^3/uL (0.0-0.7) Basophils # (Auto) 0.1 x10^3/uL (0.0-0.2) 0.0 x10^3/uL (0.0-0.2) Sodium Level 141 mmol/L (136-145) 142 mmol/L (136-145) Potassium Level 4.5 mmol/L (3.5-5.1) 4.5 mmol/L (3.5-5.1) Chloride Level 105 mmol/L (98-107) 107 mmol/L (98-107) Carbon Dioxide Level 25 mmol/L (21-32) 24 mmol/L (21-32) Anion Gap 11 (6-14) 11 (6-14) Blood Urea Nitrogen 22 mg/dL (8-26) 24 mg/dL (8-26) Creatinine 2.0 mg/dL (0.7-1.3) 2.0 mg/dL (0.7-1.3) Estimated GFR (Cockcroft-Gault) 35.5 35.5 BUN/Creatinine Ratio 11 (6-20) Glucose Level 81 mg/dL (70-99) 75 mg/dL (70-99) Calcium Level 9.5 mg/dL (8.5-10.1) 9.2 mg/dL (8.5-10.1) Total Bilirubin 0.3 mg/dL (0.2-1.0) Aspartate Amino Transf (AST/SGOT) 31 U/L (15-37) Alanine Aminotransferase (ALT/SGPT) 16 U/L (16-63) Alkaline Phosphatase 115 U/L (46-116) Total Protein 7.0 g/dL (6.4-8.2) Albumin 3.2 g/dL (3.4-5.0) Albumin/Globulin Ratio 0.8 (1.0-1.7) Lipase 71 U/L (73-393) Prostate Specific Antigen 0.95 ng/mL (0.00-4.00) Prothrombin Time 13.7 SEC (11.7-14.0) Prothromb Time International Ratio 1.1 (0.8-1.1) Medications Current Medications Morphine Sulfate (Morphine Sulfate) 4 mg PRN Q15MIN PRN IV/SQ PAIN GREATER THAN 3/10 Last administered on 05/01/19 21:17; Start 05/01/19 at 20:30; Stop at 20:29; Status DC Ondansetron HCl (Zofran) 4 mg 1X ONCE IV Last administered on 05/01/19 21:17; Start 05/01/19 at 20:45; Stop 05/01/19 at 20:46; Status DC Lorazepam (Ativan Inj) 1 mg 1X ONCE IV Last administered on 05/01/19 23:14; Start 05/01/19 at 23:00; Stop 05/01/19 at 23:01; Status DC Ondansetron HCl (Zofran) 4 mg PRN Q8HRS PRN IV NAUSEA/VOMITING 1ST CHOICE; Start 05/01/19 at 23:15; Stop 05/02/19 at 23:14; Status DC Fentanyl Citrate (Fentanyl 2ml Vial) 50 mcg PRN Q1HR PRN IV SEVERE PAIN 7-10 Last administered on 05/02/19 21:36; Start 05/01/19 at 23:15; Stop 05/02/19 at 23:14; Status DC Sodium Chloride 1,000 ml @ 100 mls/hr Q10H IV Last administered on 05/02/19 12:26; Start 05/01/19 at 23:30; Stop 05/02/19 at 23:29; Status DC Heparin Sodium (Porcine) (Heparin Sodium) 5,000 unit Q8HRS SQ Last administered on 05/03/19at 06:23; Start 05/02/19 at 14:00 Pantoprazole Sodium (Protonix) 40 mg DAILYAC PO Last administered on 05/03/19 06:23; Start 05/03/19 at 07:30 Sodium Chloride (Normal Saline Flush) 3 ml QSHIFT PRN IV AFTER MEDS AND BLOOD DRAWS; Start 05/02/19 at 16:30 Sodium Chloride 1,000 ml @ 100 mls/hr Q10H IV Last administered on 05/02/19 21:36; Start 05/02/19 at 16:25 Ondansetron HCl (Zofran) 4 mg PRN Q4HRS PRN IV NAUSEA/VOMITING; Start 05/02/19 at 16:30 Zolpidem Tartrate (Ambien) 5 mg PRN QHS PRN PO INSOMNIA; Start 05/02/19 at 16:30 Acetaminophen (Tylenol) 650 mg PRN Q4HRS PRN PO TEMP OVER 100.4F OR MILD PAIN Last administered on 05/03/19at 06:23; Start 05/02/19 at 16:30 Al Hydroxide/Mg Hydroxide (Mylanta Plus Xs) 30 ml PRN DAILY PRN PO HEARTBURN / GAS; Start 05/02/19 at 16:30 Clonidine HCl (Catapres) 0.1 mg PRN Q6HRS PRN PO SBP>160 OR DBP>90; Start 05/02/19 at 16:30 Docusate Sodium (Colace) 100 mg PRN BID PRN PO CONSTIPATION; Start 05/02/19 at 16:30 Albuterol/ Ipratropium (Duoneb) 3 ml Q4HRS NEB Last administered on 05/03/19at 09:10; Start 05/02/19 at 16:30 Guaifenesin (Robitussin) 200 mg PRN Q4HRS PRN PO COUGH; Start 05/02/19 at 16:30 Lorazepam (Ativan) 0.5 mg PRN Q4HRS PRN PO ANXIETY / AGITATION; Start 05/02/19 at 16:30 Active Scripts Active Reported Methotrexate (Methotrexate Sodium) 25 Mg/1 Ml Vial 25 Mg SQ WEEKLY Folic Acid 1 Mg Tablet 1 Tab PO DAILY Vitals/I & O Vital Sign - Last 24 Hours 05/02/19 05/02/19 05/02/19 05/02/19 10:54 15:00 19:00 19:47 Temp 98.3 99.7 98.1 98.3 99.7 98.1 Pulse 77 90 87 Resp 16 16 16 B/P (MAP) 118/70 (86) 113/71 (85) 110/70 (83) Pulse Ox 97 96 96 96 O2 Delivery Room Air Room Air Room Air Room Air 05/02/19 05/02/19 05/02/19 05/03/19 20:00 21:36 23:00 03:00 Temp 98.0 98.0 98.0 98.0 Pulse 80 77 Resp 20 16 16 B/P (MAP) 115/67 (83) 103/61 (75) Pulse Ox 96 98 96 O2 Delivery Room Air Room Air Room Air Room Air 05/03/19 05/03/19 07:00 09:10 Temp 98.2 98.2 Pulse 66 Resp 20 B/P (MAP) 102/62 (75) Pulse Ox 95 96 O2 Delivery Room Air Room Air Intake and Output 05/02/19 05/02/19 05/03/19 14:59 22:59 06:59 Intake Total 230 ml 200 ml Output Total 200 ml 650 ml Balance 30 ml -450 ml NIKKI HUIZAR MD May 03, 2019 10:44
[2019-05-03 11:00] VITALS: BP 121/65
[2019-05-03] MEDS: PIPERACILLIN/TAZOBACTAM 3.375 GM in IV NORMAL SALINE 50ML 50 ML IV SCH ×3 (14:24→23:36)
[2019-05-03] MEDS: IV NORMAL SALINE 1000ML BAG 1,000 ML IV SCH ×2 (14:24→21:07)
[2019-05-03 14:31] LABS: ALBUMIN 2.6 g/dL (3.4-5.0); CALCIUM 8.4 mg/dL (8.5-10.1); CREATININE 1.9 mg/dL (0.7-1.3); GFR 37.7; PHOSPHORUS 3.1 mg/dL (2.6-4.7); POTASSIUM 3.9 mmol/L (3.5-5.1)
[2019-05-03] MEDS: HYDROmorphone 2 MG/ML VIAL IV PRN ×2 (17:34→21:08)
[2019-05-03 19:00] VITALS: BP 120/69
--- NOTE | 2019-05-03 21:20 | NUR ---
Patient's spouse and daughter concerned re: staff emptying urinal and recording output because , "...the doctor needs to know how much he pees". This RN ensured patient and family that urine amount is documented properly in patient's record for MD's viewing. Patient reminded to notify staff after use of urinal to ensure all output is correctly recorded and patient agreed. Patient remains in bed with call light within reach, will continue to monitor.
--- NOTE | 2019-05-03 22:27 | PDOC2 ---
UROLOGY CONSULT Date of Admission DATE: 05/03/19 TIME: 22:19 Admitted for back pain and scrotal swelling. No g, no luts, no recent weight loss. CT with bladder mass and extensive pelvis/inguinal LAD and lytic bone lesions. No scrotal erythema or drainage. US W NO TESTES mass nor torsion. ROS ROS: RESPIRATORY: Shortness of breath denies. Cough denies. UROLOGY: Denies blood in urine. Denies difficulty urinating Past Surgical History: No pertinent history Past Surgical History: No Surgical History Current Medications Current Medications Morphine Sulfate (Morphine Sulfate) 4 mg PRN Q15MIN PRN IV/SQ PAIN GREATER THAN 3/10 Last administered on 05/01/19 21:17; Start 05/01/19 at 20:30; Stop 05/02/19 at 20:29; Status DC Ondansetron HCl (Zofran) 4 mg 1X ONCE IV Last administered on 05/01/19at 21:17; Start 05/01/19 at 20:45; Stop 05/01/19 at 20:46; Status DC Lorazepam (Ativan Inj) 1 mg 1X ONCE IV Last administered on 05/01/19at 23:14; Start 05/01/19 at 23:00; Stop 05/01/19 at 23:01; Status DC Ondansetron HCl (Zofran) 4 mg PRN Q8HRS PRN IV NAUSEA/VOMITING 1ST CHOICE; Start 05/01/19 at 23:15; Stop 05/02/19 at 23:14; Status DC Fentanyl Citrate (Fentanyl 2ml Vial) 50 mcg PRN Q1HR PRN IV SEVERE PAIN 7-10 Last administered on 05/02/19at 21:36; Start 05/01/19 at 23:15; Stop 05/02/19 at 23:14; Status DC Sodium Chloride 1,000 ml @ 100 mls/hr Q10H IV Last administered on 05/02/19at 12:26; Start 05/01/19 at 23:30; Stop 05/02/19 at 23:29; Status DC Heparin Sodium (Porcine) (Heparin Sodium) 5,000 unit Q8HRS SQ Last administered on 05/03/19at 21:17; Start 05/02/19 at 14:00 Pantoprazole Sodium (Protonix) 40 mg DAILYAC PO Last administered on 05/03/19at 06:23; Start 05/03/19 at 07:30 Sodium Chloride (Normal Saline Flush) 3 ml QSHIFT PRN IV AFTER MEDS AND BLOOD DRAWS; Start 05/02/19 at 16:30 Sodium Chloride 1,000 ml @ 100 mls/hr Q10H IV Last administered on 05/03/19at 21:17; Start 05/02/19 at 16:25 Ondansetron HCl (Zofran) 4 mg PRN Q4HRS PRN IV NAUSEA/VOMITING; Start 05/02/19 at 16:30 Zolpidem Tartrate (Ambien) 5 mg PRN QHS PRN PO INSOMNIA; Start 05/02/19 at 16:30 Acetaminophen (Tylenol) 650 mg PRN Q4HRS PRN PO TEMP OVER 100.4F OR MILD PAIN Last administered on 05/03/19at 21:17; Start 05/02/19 at 16:30 Al Hydroxide/Mg Hydroxide (Mylanta Plus Xs) 30 ml PRN DAILY PRN PO HEARTBURN / GAS; Start 05/02/19 at 16:30 Clonidine HCl (Catapres) 0.1 mg PRN Q6HRS PRN PO SBP>160 OR DBP>90; Start 05/02/19 at 16:30 Docusate Sodium (Colace) 100 mg PRN BID PRN PO CONSTIPATION; Start 05/02/19 at 16:30 Albuterol/ Ipratropium (Duoneb) 3 ml Q4HRS NEB Last administered on 05/03/19at 19:58; Start 05/02/19 at 16:30 Guaifenesin (Robitussin) 200 mg PRN Q4HRS PRN PO COUGH; Start 05/02/19 at 16:30 Lorazepam (Ativan) 0.5 mg PRN Q4HRS PRN PO ANXIETY / AGITATION; Start 05/02/19 at 16:30 Piperacillin Sod/ Tazobactam Sod 3.375 gm/Sodium Chloride 50 ml @ 100 mls/hr Q6HRS IV Last administered on 05/03/19at 17:34; Start 05/03/19 at 13:00 Hydromorphone HCl (Dilaudid) 1.5 mg PRN Q3HRS PRN IV PAIN Last administered on 05/03/19 21:17; Start 05/03/19 at 16:00 Active Scripts Active Reported Methotrexate (Methotrexate Sodium) 25 Mg/1 Ml Vial 25 Mg SQ WEEKLY Folic Acid 1 Mg Tablet 1 Tab PO DAILY Allergies: Coded Allergies: No Known Drug Allergies (Unverified , 05/01/19) Physical Examination PHYSICAL EXAMINATION: GENERAL: Gen. appearance: No acute distress. Mood/affect: Pleasant. HEENT: Head: Normocephalic, atraumatic. Airway Impairment: No. CHEST: Shape and expansion: Normal. Expansion: Normal. SKIN: General: Warm. Color: Good. GENITOURINARY:External genitalia - wnl. NEUROLOGICAL: Mental status: Alert and oriented �3. Language: Normal. scrotum w gen edema, not focal nor fluctuant VITALS Vital Signs Date Time Temp Pulse Resp B/P (MAP) Pulse Ox O2 Delivery O2 Flow Rate FiO2 05/03/19 21:17 18 Room Air 05/03/19 19:59 97 05/03/19 19:00 97.9 71 120/69 (86) 97.9 Labs Laboratory Tests Test 05/02/19 07:35 05/03/19 14:00 White Blood Count 5.7 x10^3/uL (4.0-11.0) Red Blood Count 3.89 x10^6/uL (4.30-5.70) Hemoglobin 11.3 g/dL (13.0-17.5) Hematocrit 34.3 % (39.0-53.0) Mean Corpuscular Volume 88 fL (79-100) Mean Corpuscular Hemoglobin 29 pg (25-35) Mean Corpuscular Hemoglobin Concent 33 g/dL (31-37) Red Cell Distribution Width 17.6 % (11.5-14.5) Platelet Count 280 x10^3/uL (140-400) Neutrophils (%) (Auto) 76 % (31-73) Lymphocytes (%) (Auto) 16 % (24-48) Monocytes (%) (Auto) 7 % (0-9) Eosinophils (%) (Auto) 2 % (0-3) Basophils (%) (Auto) 1 % (0-3) Neutrophils # (Auto) 4.3 x10^3/uL (1.8-7.7) Lymphocytes # (Auto) 0.9 x10^3/uL (1.0-4.8) Monocytes # (Auto) 0.4 x10^3/uL (0.0-1.1) Eosinophils # (Auto) 0.1 x10^3/uL (0.0-0.7) Basophils # (Auto) 0.0 x10^3/uL (0.0-0.2) Prothrombin Time 13.7 SEC (11.7-14.0) Prothromb Time International Ratio 1.1 (0.8-1.1) Sodium Level 142 mmol/L (136-145) 141 mmol/L (136-145) Potassium Level 4.5 mmol/L (3.5-5.1) 3.9 mmol/L (3.5-5.1) Chloride Level 107 mmol/L (98-107) 107 mmol/L (98-107) Carbon Dioxide Level 24 mmol/L (21-32) 27 mmol/L (21-32) Anion Gap 11 (6-14) 7 (6-14) Blood Urea Nitrogen 24 mg/dL (8-26) 22 mg/dL (8-26) Creatinine 2.0 mg/dL (0.7-1.3) 1.9 mg/dL (0.7-1.3) Estimated GFR (Cockcroft-Gault) 35.5 37.7 Glucose Level 75 mg/dL (70-99) 142 mg/dL (70-99) Calcium Level 9.2 mg/dL (8.5-10.1) 8.4 mg/dL (8.5-10.1) Phosphorus Level 3.1 mg/dL (2.6-4.7) Lactate Dehydrogenase 367 U/L (85-227) Albumin 2.6 g/dL (3.4-5.0) Laboratory Tests Test 05/03/19 14:00 Sodium Level 141 mmol/L (136-145) Potassium Level 3.9 mmol/L (3.5-5.1) Chloride Level 107 mmol/L (98-107) Carbon Dioxide Level 27 mmol/L (21-32) Anion Gap 7 (6-14) Blood Urea Nitrogen 22 mg/dL (8-26) Creatinine 1.9 mg/dL (0.7-1.3) Estimated GFR (Cockcroft-Gault) 37.7 Glucose Level 142 mg/dL (70-99) Calcium Level 8.4 mg/dL (8.5-10.1) Phosphorus Level 3.1 mg/dL (2.6-4.7) Lactate Dehydrogenase 367 U/L (85-227) Albumin 2.6 g/dL (3.4-5.0) Images as above, US and CT a/p reviewed by myself. Assessment/Plan Met bladder cancer. Needs bone scan, will send urine cytology, needs to see ONcology. PSA 0.9, not CAP. Dont think he needs tissue bx to dx bladder cancer given ct findings but may get if necessary. scrotum with gen swelling but not acute, recommend scrotum elevation, ice , compression. SCOTTY JOHNSTON MD May 03, 2019 22:27
[2019-05-03 23:00] VITALS: BP 125/78
[2019-05-04 03:00] VITALS: BP 104/60
[2019-05-04] MEDS: IPRATRPIUM/ALBUTEROL 0.5/2.5MG 3 ML NEBU. NEB SCH ×7 (04:00→23:33)
[2019-05-04 04:40] LABS: BASO % 1 % (0-3); EOS # 0.1 x10^3/uL (0.0-0.7); EOS % 2 % (0-3); HEMATOCRIT 28.4 % (39.0-53.0); HEMOGLOBIN 9.5 g/dL (13.0-17.5); LYMPH # 0.6 x10^3/uL (1.0-4.8); LYMPH % 15 % (24-48); MEAN CORPUSCULAR HEMOGLOBIN 29 pg (25-35); MEAN CORPUSCULAR HGB CONC 33 g/dL (31-37); MEAN CORPUSCULAR VOLUME 88 fL (79-100); MONO # 0.2 x10^3/uL (0.0-1.1); MONO % 4 % (0-9); NEUT # 3.4 x10^3/uL (1.8-7.7); NEUT % 79 % (31-73); PLATELET COUNT 231 x10^3/uL (140-400); RED BLOOD COUNT 3.21 x10^6/uL (4.30-5.70); RED CELL DISTRIBUTION WIDTH 17.5 % (11.5-14.5); WHITE BLOOD COUNT 4.4 x10^3/uL (4.0-11.0)
[2019-05-04 04:55] LABS: CALCIUM 8.5 mg/dL (8.5-10.1); CREATININE 1.9 mg/dL (0.7-1.3); GFR 37.7
[2019-05-04] MEDS: PANTOPRAZOLE 40 MG TABLET.DR. PO SCH (05:47)
[2019-05-04] MEDS: PIPERACILLIN/TAZOBACTAM 3.375 GM in IV NORMAL SALINE 50ML 50 ML IV SCH ×3 (05:48→18:22)
[2019-05-04] MEDS: HEPARIN for SUB-Q USE 5,000 UNIT/ML VIAL. SQ SCH ×3 (05:53→21:50)
[2019-05-04 07:00] VITALS: BP 112/62
--- NOTE | 2019-05-04 07:50 | PDOC ---
PROGRESS NOTES History of Present Illness History of Present Illness VTE Prophylaxis Ordered VTE Prophylaxis Devices: Yes VTE Pharmacological Prophylaxi: Yes Assessment/Plan Assessment/Plan Impression: Bladder mass Marked asymmetric thickening and irregularity of the posterior bladder,concerning for primary bladder neoplasm. 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 Additional small mixed lytic and sclerotic lesion in the L4 vertebral body, which might also represent osseous metastatic disease. Attention on follow-up imaging. Extensive inguinal, iliac chain, pelvic sidewall, and retroperitoneal lymphadenopathy likely representing metastatic disease. Lytic bone lesions on xray Hydrocele renal failure anemia There is no evidence of intratesticular mass or testicular torsion. There is severe edema of the scrotal soft tissues, evidence of cellulitis and phlegmon, complex appearing fluid inferior to the bilateral testicles although difficult to visualize discrete wall. ct chest Mixed osteolytic and osteoblastic lesion of the T7 vertebral body, suspicious for metastatic tumor. Mildly enlarged right axillary lymph node, 2.0 x 1.2 cm, nonspecific but concerning for troy metastasis. There are other borderline enlarged bilateral axillary and mediastinal lymph nodes as well. Recommend imaging follow-up. Opacity in the left lower lobe compatible with infiltrate or atelectasis. 05/03 Pain not well controlled, added iv dilaudid 1.5 mg q 3 hrs prn ADMITTED UROLOGY CONSULT IV PAIN CONTROL dvt prophylaxis gi prophylaxis nephrology consult ONCOLOGY CONSULT IV ANTIBIOTICS, EMPERIC 43 min pt exam, chart review, > 50% of time spent with exam, chart review, pt care coordination Vitals Vitals Vital Signs Date Time Temp Pulse Resp B/P (MAP) Pulse Ox O2 Delivery O2 Flow Rate FiO2 05/04/19 07:18 97 Room Air 05/04/19 03:40 16 05/04/19 03:00 98.0 81 104/60 (75) 98.0 Physical Exam Physical Exam Eyes: PERRLA, EOMI, conjunctiva normal, no discharge. [] Neck: Normal range of motion, no tenderness, supple, no stridor. [] Cardiovascular:Heart rate regular rhythm, no murmur [] Lungs & Thorax: Bilateral breath sounds clear to auscultation [] Abdomen: Bowel sounds normal, soft, with suprapubic tenderness. [] Skin: Warm, dry, no erythema, no rash. [] : Markedly enlarged scrotum which transilluminates with light, consistent with large hydrocele. [] Extremities: No tenderness, no cyanosis, no clubbing, ROM intact, no edema. [] Neurologic: Alert and oriented X 3, no focal deficits noted. [] General: Alert, Oriented X3, Cooperative HEENT: EOMI Heart: RRR Abdomen: Soft Extremities: No cyanosis Neuro: Normal speech, Cranial nerves 3-12 NL General: Alert, Oriented X3, Cooperative, mild distress Heart: Regular rate, Normal S1 Lungs: Clear Abdomen: Normal bowel sounds, Soft Extremities: No cyanosis Labs LABS DICTATED AND SIGNED BY: YOUSIF ODELL MD DATE: 05/04/19 1052 CC: MARBIN LAWRENCE MD; NIKKI HUIZAR MD; VIANNEY GALLO MD; NO PCP; ALYSSA LARIOS MD; JAREK LINARES MD ~ CT CHEST WO CONTRAST Indication: Mass Exposure: One or more of the following individualized dose reduction techniques were utilized for this examination: 1. Automated exposure control 2. Adjustment of the mA and/or kV according to patient size 3. Use of iterative reconstruction technique. Technique: Standard imaging without intravenous contrast. Comparison: None FINDINGS: No evidence of aortic aneurysm. Vascular exam otherwise limited without intravenous contrast. Thyroid unremarkable. Mildly enlarged right axillary lymph node measures 2.0 cm x 1.2 cm. Other smaller axillary lymph nodes are seen bilaterally. Largest on the left measures 8 mm. Small calcified mediastinal and hilar lymph nodes are seen. Pretracheal lymph node measures up to 9 mm short axis. No significant pericardial effusion. Trace pleural effusions. Mild linear markings in the right lower lobe and right middle lobe, likely atelectasis. More dense consolidation or infiltrate in the posterior left lower lobe. Trachea and mainstem bronchi are patent. Osteolytic and osteoblastic lesion within the T7 vertebral body, extending into the left anterior pedicle, most compatible with a metastatic lesion. No other destructive bone lesions are identified Scans to the upper abdomen are limited due to technique, were fully evaluated on CT abdomen study of May 01. IMPRESSION: 1. Mixed osteolytic and osteoblastic lesion of the T7 vertebral body, suspicious for metastatic tumor. 2. Mildly enlarged right axillary lymph node, 2.0 x 1.2 cm, nonspecific but concerning for troy metastasis. There are other borderline enlarged bilateral axillary and mediastinal lymph nodes as well. Recommend imaging follow-up. 3. Opacity in the left lower lobe compatible with infiltrate or atelectasis. Electronically signed by: Yousif Odell MD (05/04/2019 10:49 AM) [facility] DICTATED and SIGNED BY: YOUSIF ODELL MD DATE: 05/04/19 1049 Laboratory Tests Test 05/03/19 14:00 05/04/19 04:25 Sodium Level 141 mmol/L (136-145) 142 mmol/L (136-145) Potassium Level 3.9 mmol/L (3.5-5.1) 4.0 mmol/L (3.5-5.1) Chloride Level 107 mmol/L (98-107) 108 mmol/L (98-107) Carbon Dioxide Level 27 mmol/L (21-32) 24 mmol/L (21-32) Anion Gap 7 (6-14) 10 (6-14) Blood Urea Nitrogen 22 mg/dL (8-26) 19 mg/dL (8-26) Creatinine 1.9 mg/dL (0.7-1.3) 1.9 mg/dL (0.7-1.3) Estimated GFR (Cockcroft-Gault) 37.7 37.7 Glucose Level 142 mg/dL (70-99) 120 mg/dL (70-99) Calcium Level 8.4 mg/dL (8.5-10.1) 8.5 mg/dL (8.5-10.1) Phosphorus Level 3.1 mg/dL (2.6-4.7) Lactate Dehydrogenase 367 U/L (85-227) Albumin 2.6 g/dL (3.4-5.0) White Blood Count 4.4 x10^3/uL (4.0-11.0) Red Blood Count 3.21 x10^6/uL (4.30-5.70) Hemoglobin 9.5 g/dL (13.0-17.5) Hematocrit 28.4 % (39.0-53.0) Mean Corpuscular Volume 88 fL (79-100) Mean Corpuscular Hemoglobin 29 pg (25-35) Mean Corpuscular Hemoglobin Concent 33 g/dL (31-37) Red Cell Distribution Width 17.5 % (11.5-14.5) Platelet Count 231 x10^3/uL (140-400) Neutrophils (%) (Auto) 79 % (31-73) Lymphocytes (%) (Auto) 15 % (24-48) Monocytes (%) (Auto) 4 % (0-9) Eosinophils (%) (Auto) 2 % (0-3) Basophils (%) (Auto) 1 % (0-3) Neutrophils # (Auto) 3.4 x10^3/uL (1.8-7.7) Lymphocytes # (Auto) 0.6 x10^3/uL (1.0-4.8) Monocytes # (Auto) 0.2 x10^3/uL (0.0-1.1) Eosinophils # (Auto) 0.1 x10^3/uL (0.0-0.7) Basophils # (Auto) 0.0 x10^3/uL (0.0-0.2) Assessment and Plan Assessmemt and Plan Problems Medical Problems: (1) Bladder mass Status: Acute (2) Hydrocele in adult Status: Acute (3) Lytic bone lesions on xray Status: Acute Comment Review of Relevant I have reviewed the following items debra (where applicable) has been applied. Labs Laboratory Tests Test 05/03/19 14:00 05/04/19 04:25 Sodium Level 141 mmol/L (136-145) 142 mmol/L (136-145) Potassium Level 3.9 mmol/L (3.5-5.1) 4.0 mmol/L (3.5-5.1) Chloride Level 107 mmol/L (98-107) 108 mmol/L (98-107) Carbon Dioxide Level 27 mmol/L (21-32) 24 mmol/L (21-32) Anion Gap 7 (6-14) 10 (6-14) Blood Urea Nitrogen 22 mg/dL (8-26) 19 mg/dL (8-26) Creatinine 1.9 mg/dL (0.7-1.3) 1.9 mg/dL (0.7-1.3) Estimated GFR (Cockcroft-Gault) 37.7 37.7 Glucose Level 142 mg/dL (70-99) 120 mg/dL (70-99) Calcium Level 8.4 mg/dL (8.5-10.1) 8.5 mg/dL (8.5-10.1) Phosphorus Level 3.1 mg/dL (2.6-4.7) Lactate Dehydrogenase 367 U/L (85-227) Albumin 2.6 g/dL (3.4-5.0) White Blood Count 4.4 x10^3/uL (4.0-11.0) Red Blood Count 3.21 x10^6/uL (4.30-5.70) Hemoglobin 9.5 g/dL (13.0-17.5) Hematocrit 28.4 % (39.0-53.0) Mean Corpuscular Volume 88 fL (79-100) Mean Corpuscular Hemoglobin 29 pg (25-35) Mean Corpuscular Hemoglobin Concent 33 g/dL (31-37) Red Cell Distribution Width 17.5 % (11.5-14.5) Platelet Count 231 x10^3/uL (140-400) Neutrophils (%) (Auto) 79 % (31-73) Lymphocytes (%) (Auto) 15 % (24-48) Monocytes (%) (Auto) 4 % (0-9) Eosinophils (%) (Auto) 2 % (0-3) Basophils (%) (Auto) 1 % (0-3) Neutrophils # (Auto) 3.4 x10^3/uL (1.8-7.7) Lymphocytes # (Auto) 0.6 x10^3/uL (1.0-4.8) Monocytes # (Auto) 0.2 x10^3/uL (0.0-1.1) Eosinophils # (Auto) 0.1 x10^3/uL (0.0-0.7) Basophils # (Auto) 0.0 x10^3/uL (0.0-0.2) Laboratory Tests Test 05/03/19 14:00 05/04/19 04:25 Sodium Level 141 mmol/L (136-145) 142 mmol/L (136-145) Potassium Level 3.9 mmol/L (3.5-5.1) 4.0 mmol/L (3.5-5.1) Chloride Level 107 mmol/L (98-107) 108 mmol/L (98-107) Carbon Dioxide Level 27 mmol/L (21-32) 24 mmol/L (21-32) Anion Gap 7 (6-14) 10 (6-14) Blood Urea Nitrogen 22 mg/dL (8-26) 19 mg/dL (8-26) Creatinine 1.9 mg/dL (0.7-1.3) 1.9 mg/dL (0.7-1.3) Estimated GFR (Cockcroft-Gault) 37.7 37.7 Glucose Level 142 mg/dL (70-99) 120 mg/dL (70-99) Calcium Level 8.4 mg/dL (8.5-10.1) 8.5 mg/dL (8.5-10.1) Phosphorus Level 3.1 mg/dL (2.6-4.7) Lactate Dehydrogenase 367 U/L (85-227) Albumin 2.6 g/dL (3.4-5.0) White Blood Count 4.4 x10^3/uL (4.0-11.0) Red Blood Count 3.21 x10^6/uL (4.30-5.70) Hemoglobin 9.5 g/dL (13.0-17.5) Hematocrit 28.4 % (39.0-53.0) Mean Corpuscular Volume 88 fL (79-100) Mean Corpuscular Hemoglobin 29 pg (25-35) Mean Corpuscular Hemoglobin Concent 33 g/dL (31-37) Red Cell Distribution Width 17.5 % (11.5-14.5) Platelet Count 231 x10^3/uL (140-400) Neutrophils (%) (Auto) 79 % (31-73) Lymphocytes (%) (Auto) 15 % (24-48) Monocytes (%) (Auto) 4 % (0-9) Eosinophils (%) (Auto) 2 % (0-3) Basophils (%) (Auto) 1 % (0-3) Neutrophils # (Auto) 3.4 x10^3/uL (1.8-7.7) Lymphocytes # (Auto) 0.6 x10^3/uL (1.0-4.8) Monocytes # (Auto) 0.2 x10^3/uL (0.0-1.1) Eosinophils # (Auto) 0.1 x10^3/uL (0.0-0.7) Basophils # (Auto) 0.0 x10^3/uL (0.0-0.2) Microbiology 05/02/19 Blood Culture - Preliminary, Resulted NO GROWTH AFTER 1 DAY 05/01/19 Urine Culture - Final, Complete 05/01/19 Urine Culture Result 1 (MALA) - Final, Complete Medications Current Medications Morphine Sulfate (Morphine Sulfate) 4 mg PRN Q15MIN PRN IV/SQ PAIN GREATER THAN 3/10 Last administered on 05/01/19at 21:17; Start 05/01/19 at 20:30; Stop 05/02/19 at 20:29; Status DC Ondansetron HCl (Zofran) 4 mg 1X ONCE IV Last administered on 05/01/19at 21:17; Start 05/01/19 at 20:45; Stop 05/01/19 at 20:46; Status DC Lorazepam (Ativan Inj) 1 mg 1X ONCE IV Last administered on 05/01/19at 23:14; Start 05/01/19 at 23:00; Stop 05/01/19 at 23:01; Status DC Ondansetron HCl (Zofran) 4 mg PRN Q8HRS PRN IV NAUSEA/VOMITING 1ST CHOICE; Start 05/01/19 at 23:15; Stop 05/02/19 at 23:14; Status DC Fentanyl Citrate (Fentanyl 2ml Vial) 50 mcg PRN Q1HR PRN IV SEVERE PAIN 7-10 Last administered on 05/02/19at 21:36; Start 05/01/19 at 23:15; Stop 05/02/19 at 23:14; Status DC Sodium Chloride 1,000 ml @ 100 mls/hr Q10H IV Last administered on 05/02/19at 12:26; Start 05/01/19 at 23:30; Stop 05/02/19 at 23:29; Status DC Heparin Sodium (Porcine) (Heparin Sodium) 5,000 unit Q8HRS SQ Last administered on 05/04/19at 05:54; Start 05/02/19 at 14:00 Pantoprazole Sodium (Protonix) 40 mg DAILYAC PO Last administered on 05/04/19at 05:54; Start 05/03/19 at 07:30 Sodium Chloride (Normal Saline Flush) 3 ml QSHIFT PRN IV AFTER MEDS AND BLOOD DRAWS; Start 05/02/19 at 16:30 Sodium Chloride 1,000 ml @ 100 mls/hr Q10H IV Last administered on 05/03/19at 21:17; Start 05/02/19 at 16:25 Ondansetron HCl (Zofran) 4 mg PRN Q4HRS PRN IV NAUSEA/VOMITING; Start 05/02/19 at 16:30 Zolpidem Tartrate (Ambien) 5 mg PRN QHS PRN PO INSOMNIA; Start 05/02/19 at 16:30 Acetaminophen (Tylenol) 650 mg PRN Q4HRS PRN PO TEMP OVER 100.4F OR MILD PAIN Last administered on 05/03/19at 21:17; Start 05/02/19 at 16:30 Al Hydroxide/Mg Hydroxide (Mylanta Plus Xs) 30 ml PRN DAILY PRN PO HEARTBURN / GAS; Start 05/02/19 at 16:30 Clonidine HCl (Catapres) 0.1 mg PRN Q6HRS PRN PO SBP>160 OR DBP>90; Start 05/02/19 at 16:30 Docusate Sodium (Colace) 100 mg PRN BID PRN PO CONSTIPATION; Start 05/02/19 at 16:30 Albuterol/ Ipratropium (Duoneb) 3 ml Q4HRS NEB Last administered on 05/04/19at 07:18; Start 05/02/19 at 16:30 Guaifenesin (Robitussin) 200 mg PRN Q4HRS PRN PO COUGH; Start 05/02/19 at 16:30 Lorazepam (Ativan) 0.5 mg PRN Q4HRS PRN PO ANXIETY / AGITATION; Start 05/02/19 at 16:30 Piperacillin Sod/ Tazobactam Sod 3.375 gm/Sodium Chloride 50 ml @ 100 mls/hr Q6HRS IV Last administered on 05/04/19at 05:54; Start 05/03/19 at 13:00 Hydromorphone HCl (Dilaudid) 1.5 mg PRN Q3HRS PRN IV PAIN Last administered on 05/03/19at 21:17; Start 05/03/19 at 16:00 Active Scripts Active Reported Methotrexate (Methotrexate Sodium) 25 Mg/1 Ml Vial 25 Mg SQ WEEKLY Folic Acid 1 Mg Tablet 1 Tab PO DAILY Vitals/I & O Vital Sign - Last 24 Hours 05/03/19 05/03/19 05/03/19 05/03/19 09:10 11:00 13:15 16:07 Temp 97.7 97.7 Pulse 76 Resp 18 B/P (MAP) 121/65 (83) Pulse Ox 96 96 100 97 O2 Delivery Room Air Room Air Room Air Room Air 05/03/19 05/03/19 05/03/19 05/03/19 17:34 18:21 19:00 19:40 Temp 97.9 97.9 Pulse 71 Resp 18 B/P (MAP) 120/69 (86) Pulse Ox 97 94 O2 Delivery Room Air Room Air Room Air Room Air 05/03/19 05/03/19 05/03/19 05/04/19 19:59 21:17 23:00 03:00 Temp 98.4 98.0 98.4 98.0 Pulse 69 81 Resp 18 18 18 B/P (MAP) 125/78 (94) 104/60 (75) Pulse Ox 97 90 92 O2 Delivery Room Air Room Air Room Air Room Air 05/04/19 05/04/19 03:40 07:18 Resp 16 Pulse Ox 97 O2 Delivery Room Air Room Air Intake and Output 05/03/19 05/03/19 05/04/19 14:59 22:59 06:59 Intake Total 360 ml 200 ml Output Total 200 ml 175 ml 500 ml Balance 160 ml -175 ml -300 ml NIKKI HUIZAR MD May 04, 2019 07:50
[2019-05-04] MEDS: IV NORMAL SALINE 1000ML BAG 1,000 ML IV SCH ×2 (09:20→21:51)
--- NOTE | 2019-05-04 09:58 | PDOC2 ---
CONSULT Date of Consult Date of Consult DATE: 05/04/19 TIME: 09:50 Reason for consultation: Metastatic bladder cancer Consult: Hematology oncology, Dr. Rizwan Mccall History of present illness: He is a 48-year-old man, from [place], not a [place] citizen, unfortunately does not have any insurance, who was recently diagnosed with rheumatoid arthritis but for the last couple months has been noticing some left flank pain, up to a 6-7 out of 10, radiating to the back, worsening over time, better with Dilaudid here, and was noted to have a bladder mass with bony metastasis. Urology has seen him. We were consulted regarding the metastatic cancer clinically consistent with bladder. 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 Past medical history: Rheumatoid arthritis Past surgical history: Denies Allergies: None Medications: See attached list Social history: From [place], no tobacco Family history: His father had brain cancer Review of systems: Left flank pain, radiating to the back, joint pains, constipation, a little bit of weight loss, rash with heat, no urine problems or blood in the urine, otherwise 10 point review of systems negative Physical exam: Vitals reviewed Gen.: Thin [place] man well-developed in no acute distress HEENT: mucous membranes moist, head normocephalic atraumatic Neck: Supple, no lymphadenopathy Lymph nodes: No palpable lymphadenopathy neck or axilla Lungs: Breathing comfortably, no evidence of respiratory distress Abdomen: Soft, sl tender at L, nondistended, pain at L pelvis Extremities: No cyanosis or signif edema Skin: No obvious rashes or skin breakdown Neuro: Alert and oriented �3 Psych: Normal mood and affect Lab reviewed: White count 4.4, hemoglobin 9.5, platelets 231 MCV 88 INR 1.1 Creatinine 1.9 LDH 367 PSA 0.95 Blood cultures negative Urine culture less than 10,000 colony-forming units per ml Rads reviewed: [address] abdomen and pelvis without contrast showed posterior bladder thickening and asymmetry, extensive lytic lesions left iliac, with L4 lytic lesion, with extensive lymphadenopathy in the inguinal, iliac, pelvic and retroperitoneal regions Case discussed with: Patient, his caregiver, which I believe is his , his nurse, and records reviewed in [facility] and [facility] ([facility]: [place]), including labs and radiology, please see note for summary details. Assessment and Plan: He is a 48-year-old [place] man with concern for metastatic bladder cancer. Concern for bladder cancer: CT chest has been ordered, urine cytology has been ordered, and a I believe skeletal survey was done recently with read pending? Treatment options include chemotherapy plus or minus radiotherapy, will wait for final staging, may get radiation oncology involved? However unfortunately without insurance I think treatment options may be limited, typically a biopsy is preferred prior to administering chmo, molecular testing could be done but I don't know that this is possible again without insurance Lack of insurance: Social work consult requested Constipation: We'll make sure he has when necessary's disposition: Per others, we will continue to follow as needed, and can follow up as an outpatient if insurance availability though this may not be possible? Thank you kindly for this consultation, and please don't hesitate to call with further questions. Past Surgical History Past Surgical History: No pertinent history Family History Family History: Hypertension Social History No ALCOHOL: none Drugs: None Current Problem List Problem List Problems Medical Problems: (1) Bladder mass Status: Acute (2) Hydrocele in adult Status: Acute (3) Lytic bone lesions on xray Status: Acute Current Medications Current Medications Current Medications Morphine Sulfate (Morphine Sulfate) 4 mg PRN Q15MIN PRN IV/SQ PAIN GREATER THAN 3/10 Last administered on 05/01/19at 21:17; Start 05/01/19 at 20:30; Stop 05/02/19 at 20:29; Status DC Ondansetron HCl (Zofran) 4 mg 1X ONCE IV Last administered on 05/01/19at 21:17; Start 05/01/19 at 20:45; Stop 05/01/19 at 20:46; Status DC Lorazepam (Ativan Inj) 1 mg 1X ONCE IV Last administered on 05/01/19at 23:14; Start 05/01/19 at 23:00; Stop 05/01/19 at 23:01; Status DC Ondansetron HCl (Zofran) 4 mg PRN Q8HRS PRN IV NAUSEA/VOMITING 1ST CHOICE; Start 05/01/19 at 23:15; Stop 05/02/19 at 23:14; Status DC Fentanyl Citrate (Fentanyl 2ml Vial) 50 mcg PRN Q1HR PRN IV SEVERE PAIN 7-10 Last administered on 05/02/19at 21:36; Start 05/01/19 at 23:15; Stop 05/02/19 at 23:14; Status DC Sodium Chloride 1,000 ml @ 100 mls/hr Q10H IV Last administered on 05/02/19at 12:26; Start 05/01/19 at 23:30; Stop 05/02/19 at 23:29; Status DC Heparin Sodium (Porcine) (Heparin Sodium) 5,000 unit Q8HRS SQ Last administered on 05/04/19at 05:54; Start 05/02/19 at 14:00 Pantoprazole Sodium (Protonix) 40 mg DAILYAC PO Last administered on 05/04/19at 05:54; Start 05/03/19 at 07:30 Sodium Chloride (Normal Saline Flush) 3 ml QSHIFT PRN IV AFTER MEDS AND BLOOD DRAWS; Start 05/02/19 at 16:30 Sodium Chloride 1,000 ml @ 100 mls/hr Q10H IV Last administered on 05/03/19at 21:17; Start 05/02/19 at 16:25 Ondansetron HCl (Zofran) 4 mg PRN Q4HRS PRN IV NAUSEA/VOMITING; Start 05/02/19 at 16:30 Zolpidem Tartrate (Ambien) 5 mg PRN QHS PRN PO INSOMNIA; Start 05/02/19 at 16:30 Acetaminophen (Tylenol) 650 mg PRN Q4HRS PRN PO TEMP OVER 100.4F OR MILD PAIN Last administered on 05/03/19at 21:17; Start 05/02/19 at 16:30 Al Hydroxide/Mg Hydroxide (Mylanta Plus Xs) 30 ml PRN DAILY PRN PO HEARTBURN / GAS; Start 05/02/19 at 16:30 Clonidine HCl (Catapres) 0.1 mg PRN Q6HRS PRN PO SBP>160 OR DBP>90; Start 05/02/19 at 16:30 Docusate Sodium (Colace) 100 mg PRN BID PRN PO CONSTIPATION; Start 05/02/19 at 16:30 Albuterol/ Ipratropium (Duoneb) 3 ml Q4HRS NEB Last administered on 05/04/19at 07:18; Start 05/02/19 at 16:30 Guaifenesin (Robitussin) 200 mg PRN Q4HRS PRN PO COUGH; Start 05/02/19 at 16:30 Lorazepam (Ativan) 0.5 mg PRN Q4HRS PRN PO ANXIETY / AGITATION; Start 05/02/19 at 16:30 Piperacillin Sod/ Tazobactam Sod 3.375 gm/Sodium Chloride 50 ml @ 100 mls/hr Q6HRS IV Last administered on 05/04/19at 05:54; Start 05/03/19 at 13:00 Hydromorphone HCl (Dilaudid) 1.5 mg PRN Q3HRS PRN IV PAIN Last administered on 05/03/19at 21:17; Start 05/03/19 at 16:00 Active Scripts Active Reported Methotrexate (Methotrexate Sodium) 25 Mg/1 Ml Vial 25 Mg SQ WEEKLY Folic Acid 1 Mg Tablet 1 Tab PO DAILY Allergies Allergies: Coded Allergies: No Known Drug Allergies (Unverified , 05/01/19) Vitals VITALS Vital Signs Date Time Temp Pulse Resp B/P (MAP) Pulse Ox O2 Delivery O2 Flow Rate FiO2 05/04/19 07:18 97 Room Air 05/04/19 07:00 98.0 71 18 112/62 (79) 98.0 Labs Labs Laboratory Tests Test 05/03/19 14:00 05/04/19 04:25 Sodium Level 141 mmol/L (136-145) 142 mmol/L (136-145) Potassium Level 3.9 mmol/L (3.5-5.1) 4.0 mmol/L (3.5-5.1) Chloride Level 107 mmol/L (98-107) 108 mmol/L (98-107) Carbon Dioxide Level 27 mmol/L (21-32) 24 mmol/L (21-32) Anion Gap 7 (6-14) 10 (6-14) Blood Urea Nitrogen 22 mg/dL (8-26) 19 mg/dL (8-26) Creatinine 1.9 mg/dL (0.7-1.3) 1.9 mg/dL (0.7-1.3) Estimated GFR (Cockcroft-Gault) 37.7 37.7 Glucose Level 142 mg/dL (70-99) 120 mg/dL (70-99) Calcium Level 8.4 mg/dL (8.5-10.1) 8.5 mg/dL (8.5-10.1) Phosphorus Level 3.1 mg/dL (2.6-4.7) Lactate Dehydrogenase 367 U/L (85-227) Albumin 2.6 g/dL (3.4-5.0) White Blood Count 4.4 x10^3/uL (4.0-11.0) Red Blood Count 3.21 x10^6/uL (4.30-5.70) Hemoglobin 9.5 g/dL (13.0-17.5) Hematocrit 28.4 % (39.0-53.0) Mean Corpuscular Volume 88 fL (79-100) Mean Corpuscular Hemoglobin 29 pg (25-35) Mean Corpuscular Hemoglobin Concent 33 g/dL (31-37) Red Cell Distribution Width 17.5 % (11.5-14.5) Platelet Count 231 x10^3/uL (140-400) Neutrophils (%) (Auto) 79 % (31-73) Lymphocytes (%) (Auto) 15 % (24-48) Monocytes (%) (Auto) 4 % (0-9) Eosinophils (%) (Auto) 2 % (0-3) Basophils (%) (Auto) 1 % (0-3) Neutrophils # (Auto) 3.4 x10^3/uL (1.8-7.7) Lymphocytes # (Auto) 0.6 x10^3/uL (1.0-4.8) Monocytes # (Auto) 0.2 x10^3/uL (0.0-1.1) Eosinophils # (Auto) 0.1 x10^3/uL (0.0-0.7) Basophils # (Auto) 0.0 x10^3/uL (0.0-0.2) Laboratory Tests Test 05/03/19 14:00 05/04/19 04:25 Sodium Level 141 mmol/L (136-145) 142 mmol/L (136-145) Potassium Level 3.9 mmol/L (3.5-5.1) 4.0 mmol/L (3.5-5.1) Chloride Level 107 mmol/L (98-107) 108 mmol/L (98-107) Carbon Dioxide Level 27 mmol/L (21-32) 24 mmol/L (21-32) Anion Gap 7 (6-14) 10 (6-14) Blood Urea Nitrogen 22 mg/dL (8-26) 19 mg/dL (8-26) Creatinine 1.9 mg/dL (0.7-1.3) 1.9 mg/dL (0.7-1.3) Estimated GFR (Cockcroft-Gault) 37.7 37.7 Glucose Level 142 mg/dL (70-99) 120 mg/dL (70-99) Calcium Level 8.4 mg/dL (8.5-10.1) 8.5 mg/dL (8.5-10.1) Phosphorus Level 3.1 mg/dL (2.6-4.7) Lactate Dehydrogenase 367 U/L (85-227) Albumin 2.6 g/dL (3.4-5.0) White Blood Count 4.4 x10^3/uL (4.0-11.0) Red Blood Count 3.21 x10^6/uL (4.30-5.70) Hemoglobin 9.5 g/dL (13.0-17.5) Hematocrit 28.4 % (39.0-53.0) Mean Corpuscular Volume 88 fL (79-100) Mean Corpuscular Hemoglobin 29 pg (25-35) Mean Corpuscular Hemoglobin Concent 33 g/dL (31-37) Red Cell Distribution Width 17.5 % (11.5-14.5) Platelet Count 231 x10^3/uL (140-400) Neutrophils (%) (Auto) 79 % (31-73) Lymphocytes (%) (Auto) 15 % (24-48) Monocytes (%) (Auto) 4 % (0-9) Eosinophils (%) (Auto) 2 % (0-3) Basophils (%) (Auto) 1 % (0-3) Neutrophils # (Auto) 3.4 x10^3/uL (1.8-7.7) Lymphocytes # (Auto) 0.6 x10^3/uL (1.0-4.8) Monocytes # (Auto) 0.2 x10^3/uL (0.0-1.1) Eosinophils # (Auto) 0.1 x10^3/uL (0.0-0.7) Basophils # (Auto) 0.0 x10^3/uL (0.0-0.2) RIZWAN MCCALL MD May 04, 2019 09:58
[2019-05-04] MEDS ORDERED: POLYETHYLENE GLYCOL 3350 17 GM PACKET. PO PRN (10:00)
--- NOTE | 2019-05-04 10:22 | RAD ---
BONE SURVEY METASTATIC COMPL, CHEST AP ONLY History: Metastatic lesions. Bladder mass. No prior study for comparison 2 views of the chest demonstrate low lung volumes. Patchy infiltrate or atelectasis in both lung bases. No evidence of pneumothorax. No evidence of aggressive bone destruction. Bilateral single view AP tibia fibula: No evidence of destructive bone lesion Bilateral single view AP humerus: No evidence of destructive bone lesion Bilateral single view AP forearm: No evidence of destructive bone lesion. Bilateral single view AP femur no evidence of destructive bone lesion. Single view AP pelvis: Patchy lucency about the left iliac bone, correlates with the aggressive osteolytic lesion seen on CT scan. No other destructive bone lesions are identified. Single view lateral skull: No evidence of aggressive bone destruction. Two-view cervical spine: No evidence of destructive bone lesion. Vertebral body height and alignment is intact. Two-view thoracic spine: No evidence of destructive bone lesion. Vertebral body height appears intact. Two-view lumbar spine: Vertebral body height intact. No evidence of destructive bone lesion. The lesion identified at L4 on the CT is not visualized radiographically. IMPRESSION: 1. Destructive osteolytic lesion of the left iliac bone, suggesting metastatic disease, as also seen on CT scan. 2. No other additional definite destructive bone lesions are seen. Whole-body nuclear medicine bone scan could be of benefit for further detection of bone lesions. 3. Patchy infiltrate or atelectasis in both lung bases. Electronically signed by: Yousif Odell MD (05/04/2019 10:19 AM) [facility]
--- NOTE | 2019-05-04 10:52 | RAD ---
CT CHEST WO CONTRAST Indication: Mass Exposure: One or more of the following individualized dose reduction techniques were utilized for this examination: 1. Automated exposure control 2. Adjustment of the mA and/or kV according to patient size 3. Use of iterative reconstruction technique. Technique: Standard imaging without intravenous contrast. Comparison: None FINDINGS: No evidence of aortic aneurysm. Vascular exam otherwise limited without intravenous contrast. Thyroid unremarkable. Mildly enlarged right axillary lymph node measures 2.0 cm x 1.2 cm. Other smaller axillary lymph nodes are seen bilaterally. Largest on the left measures 8 mm. Small calcified mediastinal and hilar lymph nodes are seen. Pretracheal lymph node measures up to 9 mm short axis. No significant pericardial effusion. Trace pleural effusions. Mild linear markings in the right lower lobe and right middle lobe, likely atelectasis. More dense consolidation or infiltrate in the posterior left lower lobe. Trachea and mainstem bronchi are patent. Osteolytic and osteoblastic lesion within the T7 vertebral body, extending into the left anterior pedicle, most compatible with a metastatic lesion. No other destructive bone lesions are identified Scans to the upper abdomen are limited due to technique, were fully evaluated on CT abdomen study of May 01. IMPRESSION: 1. Mixed osteolytic and osteoblastic lesion of the T7 vertebral body, suspicious for metastatic tumor. 2. Mildly enlarged right axillary lymph node, 2.0 x 1.2 cm, nonspecific but concerning for troy metastasis. There are other borderline enlarged bilateral axillary and mediastinal lymph nodes as well. Recommend imaging follow-up. 3. Opacity in the left lower lobe compatible with infiltrate or atelectasis. Electronically signed by: Yousif Odell MD (05/04/2019 10:49 AM) [facility]
[2019-05-04 11:00] VITALS: BP 118/68
[2019-05-04 13:09] LABS: AFPT MARKER 1.9 ng/mL (0.0-8.3)
--- NOTE | 2019-05-04 14:16 | PDOC ---
SUBJECTIVE ROS Stable OBJECTIVE Vital Signs Vital Signs Date Time Temp Pulse Resp B/P (MAP) Pulse Ox O2 Delivery O2 Flow Rate FiO2 05/04/19 11:22 Room Air 05/04/19 11:00 98.0 70 18 118/68 (85) 97 98.0 I & 0 Intake and Output 05/04/19 06:59 Intake Total 560 ml Output Total 875 ml Balance -315 ml Intake Oral 560 ml Output Urine Total 875 ml # Voids 4 PHYSICAL EXAM Physical Exam General: NAD HEENT: OM moist Neck supple Heart: RRR Lungs CTA Abdomen: Soft, NT Extremities: No cyanosis, No edema Neuro: Normal speech, Cranial nerves 3-12 NL Psych/Mental Status: Mental status NL, Mood NL - NO Batres Skin No rash DIAGNOSIS/ASSESSMENT Assessment & Plan RIKI - Baseline unknown Etiology - AIN vs ATN, Hx of NSAID use UA unremarkable,no micr hematuria or overt proteinuria CT scan Kidneys unremarkable E-Lytes stable Supportive care, strict I/O Monitor, avoid Nephrotoxins Bladder mass- Marked asymmetric thickening and irregularity of the posterior bladder,concerning for primary bladder neoplasm. 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 Additional small mixed lytic and sclerotic lesion in the L4 vertebral body, which might also represent osseous metastatic disease. Extensive inguinal, iliac chain, pelvic sidewall, and retroperitoneal lymphadenopathy likely representing metastatic disease. Lytic bone lesions on xray Hem/onc following NSAID use- recently Hydrocele - Per urology Anemia- suspect sec to above Stable Hgb 11 Pre=diabetes- per patient COMMENT/RELEVANT DATA Meds Current Medications Medications (Trade) Dose Ordered Sig/Harley Start Time Stop Time Status Last Admin Dose Admin Acetaminophen (Tylenol) 650 mg PRN Q4HRS PRN 05/02/19 16:30 05/03/19 21:17 650 MG Al Hydroxide/Mg Hydroxide (Mylanta Plus Xs) 30 ml PRN DAILY PRN 05/02/19 16:30 Albuterol/ Ipratropium (Duoneb) 3 ml Q4HRS 05/02/19 16:30 05/04/19 11:22 3 ML Clonidine HCl (Catapres) 0.1 mg PRN Q6HRS PRN 05/02/19 16:30 Docusate Sodium (Colace) 100 mg PRN BID PRN 05/02/19 16:30 Fentanyl Citrate (Fentanyl 2ml Vial) 50 mcg PRN Q1HR PRN 05/01/19 23:15 05/02/19 23:14 DC 05/02/19 21:36 50 MCG Guaifenesin (Robitussin) 200 mg PRN Q4HRS PRN 05/02/19 16:30 Heparin Sodium (Porcine) (Heparin Sodium) 5,000 unit Q8HRS 05/02/19 14:00 05/04/19 05:54 5,000 UNIT Hydromorphone HCl (Dilaudid) 1.5 mg PRN Q3HRS PRN 05/03/19 16:00 05/03/19 21:17 1.5 MG Lorazepam (Ativan Inj) 1 mg 1X ONCE 05/01/19 23:00 05/01/19 23:01 DC 05/01/19 23:14 1 MG Lorazepam (Ativan) 0.5 mg PRN Q4HRS PRN 05/02/19 16:30 Morphine Sulfate (Morphine Sulfate) 4 mg PRN Q15MIN PRN 05/01/19 20:30 05/02/19 20:29 DC 05/01/19 21:17 4 MG Ondansetron HCl (Zofran) 4 mg PRN Q4HRS PRN 05/02/19 16:30 Pantoprazole Sodium (Protonix) 40 mg DAILYAC 05/03/19 07:30 05/04/19 05:54 40 MG Piperacillin Sod/ Tazobactam Sod 3.375 gm/Sodium Chloride 50 ml @ 100 mls/hr Q6HRS 05/03/19 13:00 05/04/19 11:36 100 MLS/HR Polyethylene Glycol (miraLAX PACKET) 17 gm PRN DAILY PRN 05/04/19 10:00 Sodium Chloride 1,000 ml @ 100 mls/hr Q10H 05/02/19 16:25 05/04/19 10:01 100 MLS/HR Sodium Chloride (Normal Saline Flush) 3 ml QSHIFT PRN 05/02/19 16:30 Zolpidem Tartrate (Ambien) 5 mg PRN QHS PRN 05/02/19 16:30 Lab Laboratory Tests Test 05/04/19 04:25 White Blood Count 4.4 x10^3/uL (4.0-11.0) Red Blood Count 3.21 x10^6/uL (4.30-5.70) Hemoglobin 9.5 g/dL (13.0-17.5) Hematocrit 28.4 % (39.0-53.0) Mean Corpuscular Volume 88 fL (79-100) Mean Corpuscular Hemoglobin 29 pg (25-35) Mean Corpuscular Hemoglobin Concent 33 g/dL (31-37) Red Cell Distribution Width 17.5 % (11.5-14.5) Platelet Count 231 x10^3/uL (140-400) Neutrophils (%) (Auto) 79 % (31-73) Lymphocytes (%) (Auto) 15 % (24-48) Monocytes (%) (Auto) 4 % (0-9) Eosinophils (%) (Auto) 2 % (0-3) Basophils (%) (Auto) 1 % (0-3) Neutrophils # (Auto) 3.4 x10^3/uL (1.8-7.7) Lymphocytes # (Auto) 0.6 x10^3/uL (1.0-4.8) Monocytes # (Auto) 0.2 x10^3/uL (0.0-1.1) Eosinophils # (Auto) 0.1 x10^3/uL (0.0-0.7) Basophils # (Auto) 0.0 x10^3/uL (0.0-0.2) Sodium Level 142 mmol/L (136-145) Potassium Level 4.0 mmol/L (3.5-5.1) Chloride Level 108 mmol/L (98-107) Carbon Dioxide Level 24 mmol/L (21-32) Anion Gap 10 (6-14) Blood Urea Nitrogen 19 mg/dL (8-26) Creatinine 1.9 mg/dL (0.7-1.3) Estimated GFR (Cockcroft-Gault) 37.7 Glucose Level 120 mg/dL (70-99) Calcium Level 8.5 mg/dL (8.5-10.1) Results All relevant outside records, renal labs, imaging studies, telemetry/EKG's were reviewed. EDITA GRAHAM MD May 04, 2019 14:16
[2019-05-04 15:00] VITALS: BP 111/75
[2019-05-04] MEDS: HYDROmorphone 2 MG/ML VIAL IV PRN ×2 (15:00→21:43)
[2019-05-04 19:00] VITALS: BP 117/67
[2019-05-04] MEDS: ACETAMINOPHEN 325 MG TABLET. PO PRN (21:42)
[2019-05-04 23:00] VITALS: BP 110/63
[2019-05-05] MEDS: PIPERACILLIN/TAZOBACTAM 3.375 GM in IV NORMAL SALINE 50ML 50 ML IV SCH ×5 (00:26→23:41)
[2019-05-05 03:00] VITALS: BP 105/64
[2019-05-05] MEDS: IPRATRPIUM/ALBUTEROL 0.5/2.5MG 3 ML NEBU. NEB SCH ×5 (04:00→19:56)
[2019-05-05] MEDS: IV NORMAL SALINE 1000ML BAG 1,000 ML IV SCH ×3 (04:25→23:44)
[2019-05-05] MEDS: ACETAMINOPHEN 325 MG TABLET. PO PRN (05:32)
[2019-05-05] MEDS: HYDROmorphone 2 MG/ML VIAL IV PRN ×2 (05:32→21:25)
[2019-05-05] MEDS: PANTOPRAZOLE 40 MG TABLET.DR. PO SCH (05:32)
[2019-05-05] MEDS: HEPARIN for SUB-Q USE 5,000 UNIT/ML VIAL. SQ SCH ×3 (05:39→21:36)
[2019-05-05 07:00] VITALS: BP 139/75
--- NOTE | 2019-05-05 09:19 | PDOC ---
PROGRESS NOTES Chief Complaint Chief Complaint Bladder mass Marked asymmetric thickening and irregularity of the posterior bladder,concerning for primary bladder neoplasm. 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 Additional small mixed lytic and sclerotic lesion in the L4 vertebral body, which might also represent osseous metastatic disease. Attention on follow-up imaging. Extensive inguinal, iliac chain, pelvic sidewall, and retroperitoneal lymphadenopathy likely representing metastatic disease. Lytic bone lesions on xray Hydrocele Acute renal failure Acute anemia Mixed osteolytic and osteoblastic lesion of the T7 vertebral body, suspicious for metastatic tumor. Mildly enlarged right axillary lymph node, 2.0 x 1.2 cm, nonspecific but concerning for troy metastasis. There are other borderline enlarged bilateral axillary and mediastinal lymph nodes as well. Recommend imaging follow-up. Opacity in the left lower lobe compatible with infiltrate or atelectasis. Plan: UROLOGY CONSULT IV PAIN CONTROL dvt prophylaxis gi prophylaxis nephrology consult ONCOLOGY CONSULT IV ANTIBIOTICS, EMPIRIC 43 min pt exam, chart review, > 50% of time spent with exam, chart review, pt care coordination History of Present Illness History of Present Illness Mr Burks is a 48yo M w/ PMHx RA, HTN who presents with complaint of pain and swelling of scrotum along with lower back pain that has been ongoing for about the last month. States his symptoms are progressively worsening. Swelling in the scrotal area goes down when he lays down and gets worse when he is upright. CT concerning for bladder mass, presumptively bladder ca per urology. 05/03 Pain not well controlled, added iv dilaudid 1.5 mg q 3 hrs prn D/w patient and daughters bedside he still has LLQ pain, swelling of scrotum and now has a new pruritic red rash that began on admission. No BM. No SOB or CP. Vitals Vitals Vital Signs Date Time Temp Pulse Resp B/P (MAP) Pulse Ox O2 Delivery O2 Flow Rate FiO2 05/05/19 07:22 96 Room Air 05/05/19 07:00 97.7 78 16 139/75 (96) 97.7 Physical Exam Physical Exam Eyes: PERRLA, EOMI, conjunctiva normal, no discharge. [] Neck: Normal range of motion, no tenderness, supple, no stridor. [] Cardiovascular:Heart rate regular rhythm, no murmur [] Lungs & Thorax: Bilateral breath sounds clear to auscultation [] Abdomen: Bowel sounds normal, soft, with suprapubic tenderness. [] Skin: Warm, dry, no erythema, no rash. [] : Markedly enlarged scrotum which transilluminates with light, consistent with large hydrocele. [] Extremities: No tenderness, no cyanosis, no clubbing, ROM intact, no edema. [] Neurologic: Alert and oriented X 3, no focal deficits noted. [] General: Alert, Oriented X3, Cooperative HEENT: EOMI Heart: RRR Abdomen: Soft Extremities: No cyanosis Neuro: Normal speech, Cranial nerves 3-12 NL General: Alert, Oriented X3, Cooperative, mild distress Heart: Regular rate, Normal S1 Lungs: Clear Abdomen: Normal bowel sounds, Soft Extremities: No cyanosis Assessment and Plan Assessmemt and Plan Problems Medical Problems: (1) Bladder mass Status: Acute (2) Hydrocele in adult Status: Acute (3) Lytic bone lesions on xray Status: Acute Comment Review of Relevant I have reviewed the following items debra (where applicable) has been applied. Labs Laboratory Tests Test 05/03/19 14:00 05/04/19 04:25 Sodium Level 141 mmol/L (136-145) 142 mmol/L (136-145) Potassium Level 3.9 mmol/L (3.5-5.1) 4.0 mmol/L (3.5-5.1) Chloride Level 107 mmol/L (98-107) 108 mmol/L (98-107) Carbon Dioxide Level 27 mmol/L (21-32) 24 mmol/L (21-32) Anion Gap 7 (6-14) 10 (6-14) Blood Urea Nitrogen 22 mg/dL (8-26) 19 mg/dL (8-26) Creatinine 1.9 mg/dL (0.7-1.3) 1.9 mg/dL (0.7-1.3) Estimated GFR (Cockcroft-Gault) 37.7 37.7 Glucose Level 142 mg/dL (70-99) 120 mg/dL (70-99) Calcium Level 8.4 mg/dL (8.5-10.1) 8.5 mg/dL (8.5-10.1) Phosphorus Level 3.1 mg/dL (2.6-4.7) Lactate Dehydrogenase 367 U/L (85-227) Albumin 2.6 g/dL (3.4-5.0) Tumor Marker Alpha Fetoprotein 1.9 ng/mL (0.0-8.3) Tumor Marker HCG <1 mIU/mL (0-3) White Blood Count 4.4 x10^3/uL (4.0-11.0) Red Blood Count 3.21 x10^6/uL (4.30-5.70) Hemoglobin 9.5 g/dL (13.0-17.5) Hematocrit 28.4 % (39.0-53.0) Mean Corpuscular Volume 88 fL (79-100) Mean Corpuscular Hemoglobin 29 pg (25-35) Mean Corpuscular Hemoglobin Concent 33 g/dL (31-37) Red Cell Distribution Width 17.5 % (11.5-14.5) Platelet Count 231 x10^3/uL (140-400) Neutrophils (%) (Auto) 79 % (31-73) Lymphocytes (%) (Auto) 15 % (24-48) Monocytes (%) (Auto) 4 % (0-9) Eosinophils (%) (Auto) 2 % (0-3) Basophils (%) (Auto) 1 % (0-3) Neutrophils # (Auto) 3.4 x10^3/uL (1.8-7.7) Lymphocytes # (Auto) 0.6 x10^3/uL (1.0-4.8) Monocytes # (Auto) 0.2 x10^3/uL (0.0-1.1) Eosinophils # (Auto) 0.1 x10^3/uL (0.0-0.7) Basophils # (Auto) 0.0 x10^3/uL (0.0-0.2) Microbiology 05/02/19 Blood Culture - Preliminary, Resulted NO GROWTH AFTER 2 DAYS 05/01/19 Urine Culture - Final, Complete 05/01/19 Urine Culture Result 1 (MALA) - Final, Complete Medications Current Medications Morphine Sulfate (Morphine Sulfate) 4 mg PRN Q15MIN PRN IV/SQ PAIN GREATER THAN 3/10 Last administered on 05/01/19at 21:17; Start 05/01/19 at 20:30; Stop 05/02/19 at 20:29; Status DC Ondansetron HCl (Zofran) 4 mg 1X ONCE IV Last administered on 05/01/19 21:17; Start 05/01/19 at 20:45; Stop 05/01/19 at 20:46; Status DC Lorazepam (Ativan Inj) 1 mg 1X ONCE IV Last administered on 05/01/19at 23:14; Start 05/01/19 at 23:00; Stop 05/01/19 at 23:01; Status DC Ondansetron HCl (Zofran) 4 mg PRN Q8HRS PRN IV NAUSEA/VOMITING 1ST CHOICE; Start 05/01/19 at 23:15; Stop 05/02/19 at 23:14; Status DC Fentanyl Citrate (Fentanyl 2ml Vial) 50 mcg PRN Q1HR PRN IV SEVERE PAIN 7-10 Last administered on 05/02/19 21:36; Start 05/01/19 at 23:15; Stop 05/02/19 at 23:14; Status DC Sodium Chloride 1,000 ml @ 100 mls/hr Q10H IV Last administered on 05/02/19 12:26; Start 05/01/19 at 23:30; Stop 05/02/19 at 23:29; Status DC Heparin Sodium (Porcine) (Heparin Sodium) 5,000 unit Q8HRS SQ Last administered on 05/05/19 05:39; Start 05/02/19 at 14:00 Pantoprazole Sodium (Protonix) 40 mg DAILYAC PO Last administered on 05/05/19 05:39; Start 05/03/19 at 07:30 Sodium Chloride (Normal Saline Flush) 3 ml QSHIFT PRN IV AFTER MEDS AND BLOOD DRAWS; Start 05/02/19 at 16:30 Sodium Chloride 1,000 ml @ 100 mls/hr Q10H IV Last administered on 05/04/19 21:51; Start 05/02/19 at 16:25 Ondansetron HCl (Zofran) 4 mg PRN Q4HRS PRN IV NAUSEA/VOMITING Last administered on 05/05/19 07:52; Start 05/02/19 at 16:30 Zolpidem Tartrate (Ambien) 5 mg PRN QHS PRN PO INSOMNIA; Start 05/02/19 at 16:30 Acetaminophen (Tylenol) 650 mg PRN Q4HRS PRN PO TEMP OVER 100.4F OR MILD PAIN Last administered on 05/05/19at 05:39; Start 05/02/19 at 16:30 Al Hydroxide/Mg Hydroxide (Mylanta Plus Xs) 30 ml PRN DAILY PRN PO HEARTBURN / GAS; Start 05/02/19 at 16:30 Clonidine HCl (Catapres) 0.1 mg PRN Q6HRS PRN PO SBP>160 OR DBP>90; Start 05/02/19 at 16:30 Docusate Sodium (Colace) 100 mg PRN BID PRN PO HARD STOOLS; Start 05/02/19 at 16:30 Albuterol/ Ipratropium (Duoneb) 3 ml Q4HRS NEB Last administered on 05/05/19at 07:22; Start 05/02/19 at 16:30 Guaifenesin (Robitussin) 200 mg PRN Q4HRS PRN PO COUGH; Start 05/02/19 at 16:30 Lorazepam (Ativan) 0.5 mg PRN Q4HRS PRN PO ANXIETY / AGITATION; Start 05/02/19 at 16:30 Piperacillin Sod/ Tazobactam Sod 3.375 gm/Sodium Chloride 50 ml @ 100 mls/hr Q6HRS IV Last administered on 05/05/19at 05:39; Start 05/03/19 at 13:00 Hydromorphone HCl (Dilaudid) 1.5 mg PRN Q3HRS PRN IV PAIN Last administered on 05/05/19at 05:39; Start 05/03/19 at 16:00 Polyethylene Glycol (miraLAX PACKET) 17 gm PRN DAILY PRN PO CONSTIPATION; Start 05/04/19 at 10:00 Active Scripts Active Reported Methotrexate (Methotrexate Sodium) 25 Mg/1 Ml Vial 25 Mg SQ WEEKLY Folic Acid 1 Mg Tablet 1 Tab PO DAILY Vitals/I & O Vital Sign - Last 24 Hours 05/04/19 05/04/19 05/04/19 05/04/19 11:00 11:22 15:00 15:01 Temp 98.0 97.0 98.0 97.0 Pulse 70 70 Resp 18 18 B/P (MAP) 118/68 (85) 111/75 (87) Pulse Ox 97 96 O2 Delivery Room Air Room Air Room Air Room Air 05/04/19 05/04/19 05/04/19/1/19 15:58 16:33 19:00 19:56 Temp 97.7 97.7 Pulse 96 Resp 18 B/P (MAP) 117/67 (84) Pulse Ox 98 O2 Delivery Room Air Room Air Room Air Room Air 05/04/19 05/04/19 05/04/19 05/04/19 20:05 21:51 22:18 23:00 Temp 97.8 97.8 Pulse 88 Resp 16 16 18 B/P (MAP) 110/63 (79) Pulse Ox 99 O2 Delivery Room Air Room Air Room Air Room Air 05/05/19 05/05/19 05/05/19 05/05/19 03:00 05:39 06:05 07:00 Temp 98.6 97.7 98.6 97.7 Pulse 60 78 Resp 18 16 16 16 B/P (MAP) 105/64 (78) 139/75 (96) Pulse Ox 94 99 O2 Delivery Room Air Room Air Room Air Room Air 05/05/19 07:22 Pulse Ox 96 O2 Delivery Room Air Intake and Output 05/04/19 05/04/19 05/05/19 14:59 22:59 06:59 Intake Total 520 ml 1470 ml 700 ml Output Total 610 ml 710 ml 800 ml Balance -90 ml 760 ml -100 ml TAMIKA ALCANTAR MD May 05, 2019 09:19
[2019-05-05 10:47] VITALS: BP 124/78
[2019-05-05 15:00] VITALS: BP 129/76
[2019-05-05] MEDS: MICONAZOLE NITRATE 2% TOPICAL CREAM 28GM TUBE. TP SCH ×2 (15:56→21:33)
[2019-05-05] MEDS: LIDOCAINE (700MG/PATCH) PATCH. TD SCH (15:57)
[2019-05-05 19:00] VITALS: BP 122/75
[2019-05-05] MEDS: PATCH REMOVAL. MC SCH (21:00)
[2019-05-05 23:00] VITALS: BP 110/63
[2019-05-06] MEDS: HYDROmorphone 2 MG/ML VIAL IV PRN ×4 (01:31→22:16)
[2019-05-06 03:00] VITALS: BP 109/65
[2019-05-06] MEDS: IPRATRPIUM/ALBUTEROL 0.5/2.5MG 3 ML NEBU. NEB SCH ×7 (04:00→22:30)
[2019-05-06] MEDS: PANTOPRAZOLE 40 MG TABLET.DR. PO SCH (05:46)
[2019-05-06] MEDS: PIPERACILLIN/TAZOBACTAM 3.375 GM in IV NORMAL SALINE 50ML 50 ML IV SCH ×4 (05:46→23:58)
[2019-05-06] MEDS: HEPARIN for SUB-Q USE 5,000 UNIT/ML VIAL. SQ SCH ×3 (05:55→22:27)
[2019-05-06 07:00] VITALS: BP 110/62
--- NOTE | 2019-05-06 09:01 | PDOC ---
SUBJECTIVE Subjective Pt doing well, having a little pain intermittently with urination but not too bad, no hematuria. He still has some swelling in the right side of his scrotum, but not too bad overall. Left side of scrotum has no pain or swelling. OBJECTIVE Objective Physical Exam: General appearance: Alert and Oriented Head: Normocephalic, without obvious abnormality Eyes: conjunctivae/corneas clear. PERRL, EOM's intact. Fundi benign Lungs: Regular respirations, non labored breathing Abdomen: soft, non-tender. . No masses, no organomegaly Pelvic: + slight swelling on the right side of the scrotum, non tender, no red areas or drainage noted. Left side of scrotum is WNL. Vital Signs Vital Signs Date Time Temp Pulse Resp B/P (MAP) Pulse Ox O2 Delivery O2 Flow Rate FiO2 05/06/19 08:06 100 Room Air 05/06/19 07:29 Room Air 05/06/19 07:00 98.0 81 14 110/62 (78) 95 Room Air 98.0 05/06/19 05:55 18 Room Air 05/06/19 03:00 98.3 78 18 109/65 (80) 93 Room Air 98.3 05/06/19 02:36 16 Room Air 05/06/19 01:31 16 Room Air 05/05/19 23:00 97.7 68 18 110/63 (79) 92 Room Air 97.7 05/05/19 22:32 16 Room Air 05/05/19 21:37 18 Room Air 05/05/19 20:00 Room Air 05/05/19 19:00 98.0 72 18 122/75 (91) 92 Room Air 98.0 05/05/19 15:00 97.9 83 14 129/76 (93) 97 Room Air 97.9 05/05/19 10:47 98.0 86 14 124/78 (93) 98 Room Air 98.0 I & O Intake and Output 05/06/19 06:59 Intake Total 340 ml Output Total 1000 ml Balance -660 ml Intake Oral 340 ml Output Urine Total 1000 ml # Voids 4 PHYSICAL EXAM Physical Exam Physical Exam: General appearance: Alert and Oriented Head: Normocephalic, without obvious abnormality Eyes: conjunctivae/corneas clear. PERRL, EOM's intact. Fundi benign Lungs: Regular respirations, non labored breathing Abdomen: soft, non-tender. . No masses, no organomegaly Pelvic: + slight swelling on the right side of the scrotum, non tender, no red areas or drainage noted. Left side of scrotum is WNL. ASSESSMENT/PLAN Assessment/Plan A whole body bone scan has been ordered, may not happen today per radiology due to resources. If he discharges home prior to this being done, it can be performed as an outpatient. Dr. Hidalgo of oncology is involved. Above plus all questions answered using an flavor tank tender phone. Scrotum has gen swelling but not acute, recommend scrotum elevation, ice , compression. Will check tomorrow if still in house. GERMAN JERRY APRN May 06, 2019 09:00
--- NOTE | 2019-05-06 09:17 | PDOC ---
SUBJECTIVE Subjective S: No pain, bowels moving O: Physical exam: Gen.: Well-nourished and well-developed, resting in bed Lungs: Breathing comfortably Psychiatric: Pleasant mood and affect Labs: Creatinine 1.9, hemoglobin 9.5, calcium 8.4, albumin 2.6 Rads: CT chest showed mixed lytic/blastic lesion at T7, right axillary lymph nodes to 1.2 cm in short axis, bilateral axillary and mediastinal lymph nodes slightly enlarged, left lower lobe atelectasis/infiltrate Skeletal survey showed lytic destructive lesion at left iliac, consider bone scan Assessment and Plan: He is a 48-year-old [place] man with concern for metastatic bladder cancer to lymph nodes and bones, stage IV, unfortunately without insurance. Concern for bladder cancer: urine cytology has been ordered. Treatment options include chemotherapy plus or minus radiotherapy, however unfortunately without insurance I think treatment options may be limited, typically a biopsy is preferred prior to administering chemo, molecular testing could be done but I don't know that tx is possible again without insurance, therefore have asked Mrs. Jonas to see if potential [facility] don hospice services may be available if we cannot actively treat Lack of insurance: Social work consult requested Constipation: he has when necessary's disposition: Per others, we will continue to follow as needed, and can follow up as an outpatient if insurance availability though doubt this will be a possibility, typically self pay is financially prohibitive as well Thank you kindly and please do not hesitate to call with questions. OBJECTIVE Vital Signs Vital Signs Date Time Temp Pulse Resp B/P (MAP) Pulse Ox O2 Delivery O2 Flow Rate FiO2 05/06/19 08:06 100 Room Air 05/06/19 07:29 Room Air 05/06/19 07:00 98.0 81 14 110/62 (78) 95 Room Air 98.0 05/06/19 05:55 18 Room Air 05/06/19 03:00 98.3 78 18 109/65 (80) 93 Room Air 98.3 05/06/19 02:36 16 Room Air 05/06/19 01:31 16 Room Air 05/05/19 23:00 97.7 68 18 110/63 (79) 92 Room Air 97.7 05/05/19 22:32 16 Room Air 05/05/19 21:37 18 Room Air 05/05/19 20:00 Room Air 05/05/19 19:00 98.0 72 18 122/75 (91) 92 Room Air 98.0 05/05/19 15:00 97.9 83 14 129/76 (93) 97 Room Air 97.9 05/05/19 10:47 98.0 86 14 124/78 (93) 98 Room Air 98.0 I & O Intake and Output 05/06/19 06:59 Intake Total 340 ml Output Total 1000 ml Balance -660 ml Intake Oral 340 ml Output Urine Total 1000 ml # Voids 4 RIZWAN STEELE MD May 06, 2019 09:17
[2019-05-06] MEDS: MICONAZOLE NITRATE 2% TOPICAL CREAM 28GM TUBE. TP SCH ×2 (09:29→22:13)
[2019-05-06] MEDS: LIDOCAINE (700MG/PATCH) PATCH. TD SCH (09:29)
[2019-05-06] MEDS: IV NORMAL SALINE 1000ML BAG 1,000 ML IV SCH ×2 (09:29→22:13)
[2019-05-06 11:00] VITALS: BP 121/72
--- NOTE | 2019-05-06 11:38 | PDOC ---
SUBJECTIVE ROS Stable OBJECTIVE Vital Signs Vital Signs Date Time Temp Pulse Resp B/P (MAP) Pulse Ox O2 Delivery O2 Flow Rate FiO2 05/06/19 11:00 98.0 78 18 121/72 (88) 93 Room Air 98.0 I & 0 Intake and Output 05/06/19 07:00 Intake Total 340 ml Output Total 1000 ml Balance -660 ml Intake Oral 340 ml Output Urine Total 1000 ml # Voids 4 PHYSICAL EXAM Physical Exam General: NAD HEENT: OM moist Neck supple Heart: RRR Lungs CTA Abdomen: Soft, NT Extremities: No cyanosis, No edema Neuro: Normal speech, Cranial nerves 3-12 NL Psych/Mental Status: Mental status NL, Mood NL - NO Batres , scrotal edema Skin No rash DIAGNOSIS/ASSESSMENT Assessment & Plan RIKI - Baseline unknown Etiology - AIN vs ATN, Hx of NSAID use Last BMP on 05/04, ordered labs and monitor UA unremarkable,no micr hematuria or overt proteinuria CT scan Kidneys unremarkable Supportive care, strict I/O Monitor, avoid Nephrotoxins Bladder mass- Marked asymmetric thickening and irregularity of the posterior bladder,concerning for primary bladder neoplasm. 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 Additional small mixed lytic and sclerotic lesion in the L4 vertebral body, which might also represent osseous metastatic disease. Extensive inguinal, iliac chain, pelvic sidewall, and retroperitoneal lymphadenopathy likely representing metastatic disease. Lytic bone lesions on xray Hem/onc following NSAID use- recently Hydrocele - Per urology Anemia- suspect sec to above Stable Hgb 11 Pre=diabetes- per patient COMMENT/RELEVANT DATA Meds Current Medications Medications (Trade) Dose Ordered Sig/Harley Start Time Stop Time Status Last Admin Dose Admin Acetaminophen (Tylenol) 650 mg PRN Q4HRS PRN 05/02/19 16:30 05/05/19 05:39 650 MG Al Hydroxide/Mg Hydroxide (Mylanta Plus Xs) 30 ml PRN DAILY PRN 05/02/19 16:30 Albuterol/ Ipratropium (Duoneb) 3 ml Q4HRS 05/02/19 16:30 05/06/19 08:04 3 ML Clonidine HCl (Catapres) 0.1 mg PRN Q6HRS PRN 05/02/19 16:30 Docusate Sodium (Colace) 100 mg PRN BID PRN 05/02/19 16:30 Fentanyl Citrate (Fentanyl 2ml Vial) 50 mcg PRN Q1HR PRN 05/01/19 23:15 05/02/19 23:14 DC 05/02/19 21:36 50 MCG Guaifenesin (Robitussin) 200 mg PRN Q4HRS PRN 05/02/19 16:30 Heparin Sodium (Porcine) (Heparin Sodium) 5,000 unit Q8HRS 05/02/19 14:00 05/06/19 05:55 5,000 UNIT Hydromorphone HCl (Dilaudid) 1.5 mg PRN Q3HRS PRN 05/03/19 16:00 05/06/19 05:55 1.5 MG Lidocaine (Lidoderm) 1 patch DAILY 05/05/19 14:45 05/06/19 09:29 1 PATCH Lorazepam (Ativan Inj) 1 mg 1X ONCE 05/01/19 23:00 05/01/19 23:01 DC 05/01/19 23:14 1 MG Lorazepam (Ativan) 0.5 mg PRN Q4HRS PRN 05/02/19 16:30 Miconazole Nitrate (Monistat-Derm) 1 valerie BID 05/05/19 15:00 05/06/19 09:29 1 VALERIE Miscellaneous (Lidoderm Patch Removal) 1 ea QHS 05/05/19 21:00 05/05/19 21:33 1 EA Morphine Sulfate (Morphine Sulfate) 4 mg PRN Q15MIN PRN 05/01/19 20:30 05/02/19 20:29 DC 05/01/19 21:17 4 MG Ondansetron HCl (Zofran) 4 mg PRN Q4HRS PRN 05/02/19 16:30 05/05/19 07:52 4 MG Pantoprazole Sodium (Protonix) 40 mg DAILYAC 05/03/19 07:30 05/06/19 05:55 40 MG Piperacillin Sod/ Tazobactam Sod 3.375 gm/Sodium Chloride 50 ml @ 100 mls/hr Q6HRS 05/03/19 13:00 05/06/19 05:55 100 MLS/HR Polyethylene Glycol (miraLAX PACKET) 17 gm PRN DAILY PRN 05/04/19 10:00 Sodium Chloride 1,000 ml @ 100 mls/hr Q10H 05/02/19 16:25 9/3/19 09:29 100 MLS/HR Sodium Chloride (Normal Saline Flush) 3 ml QSHIFT PRN 05/02/19 16:30 Zolpidem Tartrate (Ambien) 5 mg PRN QHS PRN 05/02/19 16:30 Results All relevant outside records, renal labs, imaging studies, telemetry/EKG's were reviewed. EDITA GRAHAM MD May 06, 2019 11:38
--- NOTE | 2019-05-06 11:50 | PDOC ---
PROGRESS NOTES Chief Complaint Chief Complaint Bladder mass Marked asymmetric thickening and irregularity of the posterior bladder,concerning for primary bladder neoplasm. 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 Additional small mixed lytic and sclerotic lesion in the L4 vertebral body, which might also represent osseous metastatic disease. Attention on follow-up imaging. Extensive inguinal, iliac chain, pelvic sidewall, and retroperitoneal lymphadenopathy likely representing metastatic disease. Lytic bone lesions on xray Hydrocele Acute renal failure Acute anemia Mixed osteolytic and osteoblastic lesion of the T7 vertebral body, suspicious for metastatic tumor. Mildly enlarged right axillary lymph node, 2.0 x 1.2 cm, nonspecific but concerning for troy metastasis. There are other borderline enlarged bilateral axillary and mediastinal lymph nodes as well. Recommend imaging follow-up. Opacity in the left lower lobe compatible with infiltrate or atelectasis. Plan: UROLOGY CONSULT IV PAIN CONTROL dvt prophylaxis gi prophylaxis nephrology consult ONCOLOGY CONSULT IV ANTIBIOTICS, EMPIRIC 43 min pt exam, chart review, > 50% of time spent with exam, chart review, pt care coordination History of Present Illness History of Present Illness Mr Burks is a 48yo M w/ PMHx RA, HTN who presents with complaint of pain and swelling of scrotum along with lower back pain that has been ongoing for about the last month. States his symptoms are progressively worsening. Swelling in the scrotal area goes down when he lays down and gets worse when he is upright. CT concerning for bladder mass, presumptively bladder ca per urology. 05/03 Pain not well controlled, added iv dilaudid 1.5 mg q 3 hrs prn D/w patient and daughters bedside he still has LLQ pain, swelling of scrotum and now has a new pruritic red rash that began on admission. No BM. No SOB or CP. Used life skills coordinator volunteer phone with , they wish for pathologic diagnosis and charitable chemotherapy options. Vitals Vitals Vital Signs Date Time Temp Pulse Resp B/P (MAP) Pulse Ox O2 Delivery O2 Flow Rate FiO2 05/06/19 11:00 98.0 78 18 121/72 (88) 93 Room Air 98.0 Physical Exam Physical Exam Eyes: PERRLA, EOMI, conjunctiva normal, no discharge. [] Neck: Normal range of motion, no tenderness, supple, no stridor. [] Cardiovascular:Heart rate regular rhythm, no murmur [] Lungs & Thorax: Bilateral breath sounds clear to auscultation [] Abdomen: Bowel sounds normal, soft, with suprapubic tenderness. [] Skin: Warm, dry, no erythema, no rash. [] : Markedly enlarged scrotum which transilluminates with light, consistent with large hydrocele. [] Extremities: No tenderness, no cyanosis, no clubbing, ROM intact, no edema. [] Neurologic: Alert and oriented X 3, no focal deficits noted. [] General: Alert, Oriented X3, Cooperative HEENT: EOMI Heart: RRR Abdomen: Soft Extremities: No cyanosis Neuro: Normal speech, Cranial nerves 3-12 NL General: Alert, Oriented X3, Cooperative, mild distress Heart: Regular rate, Normal S1 Lungs: Clear Abdomen: Normal bowel sounds, Soft Extremities: No cyanosis Assessment and Plan Assessmemt and Plan Problems Medical Problems: (1) Bladder mass Status: Acute (2) Hydrocele in adult Status: Acute (3) Lytic bone lesions on xray Status: Acute Comment Review of Relevant I have reviewed the following items debra (where applicable) has been applied. Labs Microbiology 05/02/19 Blood Culture - Preliminary, Resulted NO GROWTH AFTER 3 DAYS 05/01/19 Urine Culture - Final, Complete 05/01/19 Urine Culture Result 1 (MALA) - Final, Complete Medications Current Medications Morphine Sulfate (Morphine Sulfate) 4 mg PRN Q15MIN PRN IV/SQ PAIN GREATER THAN 3/10 Last administered on 05/01/19at 21:17; Start 05/01/19 at 20:30; Stop 05/02/19 at 20:29; Status DC Ondansetron HCl (Zofran) 4 mg 1X ONCE IV Last administered on 05/01/19at 21:17; Start 05/01/19 at 20:45; Stop 05/01/19 at 20:46; Status DC Lorazepam (Ativan Inj) 1 mg 1X ONCE IV Last administered on 05/01/19at 23:14; Start 05/01/19 at 23:00; Stop 05/01/19 at 23:01; Status DC Ondansetron HCl (Zofran) 4 mg PRN Q8HRS PRN IV NAUSEA/VOMITING 1ST CHOICE; Start 05/01/19 at 23:15; Stop 05/02/19 at 23:14; Status DC Fentanyl Citrate (Fentanyl 2ml Vial) 50 mcg PRN Q1HR PRN IV SEVERE PAIN 7-10 Last administered on 05/02/19 21:36; Start 05/01/19 at 23:15; Stop 05/02/19 at 23:14; Status DC Sodium Chloride 1,000 ml @ 100 mls/hr Q10H IV Last administered on 05/02/19at 12:26; Start 05/01/19 at 23:30; Stop 05/02/19 at 23:29; Status DC Heparin Sodium (Porcine) (Heparin Sodium) 5,000 unit Q8HRS SQ Last administered on 05/06/19 05:55; Start 05/02/19 at 14:00 Pantoprazole Sodium (Protonix) 40 mg DAILYAC PO Last administered on 05/06/19 05:55; Start 05/03/19 at 07:30 Sodium Chloride (Normal Saline Flush) 3 ml QSHIFT PRN IV AFTER MEDS AND BLOOD DRAWS; Start 05/02/19 at 16:30 Sodium Chloride 1,000 ml @ 100 mls/hr Q10H IV Last administered on 05/06/19at 09:29; Start 05/02/19 at 16:25 Ondansetron HCl (Zofran) 4 mg PRN Q4HRS PRN IV NAUSEA/VOMITING Last administere d on 05/05/19 07:52; Start 05/02/19 at 16:30 Zolpidem Tartrate (Ambien) 5 mg PRN QHS PRN PO INSOMNIA; Start 05/02/19 at 16:30 Acetaminophen (Tylenol) 650 mg PRN Q4HRS PRN PO TEMP OVER 100.4F OR MILD PAIN Last administered on 05/05/19 05:39; Start 05/02/19 at 16:30 Al Hydroxide/Mg Hydroxide (Mylanta Plus Xs) 30 ml PRN DAILY PRN PO HEARTBURN / GAS; Start 05/02/19 at 16:30 Clonidine HCl (Catapres) 0.1 mg PRN Q6HRS PRN PO SBP>160 OR DBP>90; Start 05/02/19 at 16:30 Docusate Sodium (Colace) 100 mg PRN BID PRN PO HARD STOOLS; Start 05/02/19 at 16:30 Albuterol/ Ipratropium (Duoneb) 3 ml Q4HRS NEB Last administered on 05/06/19 08:04; Start 05/02/19 at 16:30 Guaifenesin (Robitussin) 200 mg PRN Q4HRS PRN PO COUGH; Start 05/02/19 at 16:30 Lorazepam (Ativan) 0.5 mg PRN Q4HRS PRN PO ANXIETY / AGITATION; Start 05/02/19 at 16:30 Piperacillin Sod/ Tazobactam Sod 3.375 gm/Sodium Chloride 50 ml @ 100 mls/hr Q6HRS IV Last administered on 05/06/19 05:55; Start 05/03/19 at 13:00 Hydromorphone HCl (Dilaudid) 1.5 mg PRN Q3HRS PRN IV PAIN Last administered on 05/06/19 05:55; Start 05/03/19 at 16:00 Polyethylene Glycol (miraLAX PACKET) 17 gm PRN DAILY PRN PO CONSTIPATION; Start 05/04/19 at 10:00 Miconazole Nitrate (Monistat-Derm) 1 valerie BID TP Last administered on 05/06/19 0 9:29; Start 05/05/19 at 15:00 Lidocaine (Lidoderm) 1 patch DAILY TD Last administered on 05/06/19 09:29; Start 05/05/19 at 14:45 Miscellaneous (Lidoderm Patch Removal) 1 ea QHS MC Last administered on 05/05/19 21:33; Start 05/05/19 at 21:00 Active Scripts Active Reported Methotrexate (Methotrexate Sodium) 25 Mg/1 Ml Vial 25 Mg SQ WEEKLY Folic Acid 1 Mg Tablet 1 Tab PO DAILY Vitals/I & O Vital Sign - Last 24 Hours 05/05/19 05/05/19 05/05/19 05/05/19 15:00 19:00 20:00 21:37 Temp 97.9 98.0 97.9 98.0 Pulse 83 72 Resp 14 18 18 B/P (MAP) 129/76 (93) 122/75 (91) Pulse Ox 97 92 O2 Delivery Room Air Room Air Room Air Room Air 05/05/19 05/05/19 05/06/19 05/06/19 22:32 23:00 01:31 02:36 Temp 97.7 97.7 Pulse 68 Resp 16 18 16 16 B/P (MAP) 110/63 (79) Pulse Ox 92 O2 Delivery Room Air Room Air Room Air Room Air 05/06/19 05/06/19 05/06/19 05/06/19 03:00 05:55 07:00 07:29 Temp 98.3 98.0 98.3 98.0 Pulse 78 81 Resp 18 18 14 B/P (MAP) 109/65 (80) 110/62 (78) Pulse Ox 93 95 O2 Delivery Room Air Room Air Room Air Room Air 05/06/19 05/06/19 05/06/19 08:00 08:06 11:00 Temp 98.0 98.0 Pulse 78 Resp 18 B/P (MAP) 121/72 (88) Pulse Ox 100 93 O2 Delivery Room Air Room Air Room Air Intake and Output 05/05/19 05/05/19 05/06/19 14:59 22:59 06:59 Intake Total 340 ml Output Total 1000 ml Balance 340 ml -1000 ml TAMIKA ALCANTAR MD May 06, 2019 11:50
--- NOTE | 2019-05-06 14:36 | NUR ---
SS following for discharge planning. SS reviewed pt chart. Pt is self pay pt. HCFS following for self pay status. Pt recently diagnosed with cancer with mets. Palliative Care consulted. SS will consult with HCFS and Palliative Care RN and will proceed accordingly with discharge planning.
[2019-05-06 15:00] VITALS: BP 120/78
--- NOTE | 2019-05-06 18:28 | PDOC2 ---
PALLIATIVE CARE Palliative Care Note Palliative Care Consult requested by Dr. Mccall to assist with discharge plan and goals of care (1) Bladder mass (2) Hydrocele in adult (3) Lytic bone lesions on xray Discussed with Dr. Mccall. No resources available for chemotherapy. Spoke with patient, and daughters. Plan family meeting tomorrow at 1100. DESTINEE CHAWLA May 06, 2019 18:28
[2019-05-06 19:00] VITALS: BP 127/75
[2019-05-06] MEDS: PATCH REMOVAL. MC SCH (21:00)
[2019-05-06 22:53] VITALS: BP 125/71
[2019-05-07 02:50] VITALS: BP 113/66
[2019-05-07] MEDS: PANTOPRAZOLE 40 MG TABLET.DR. PO SCH (05:39)
[2019-05-07] MEDS: PIPERACILLIN/TAZOBACTAM 3.375 GM in IV NORMAL SALINE 50ML 50 ML IV SCH ×2 (05:39→11:59)
[2019-05-07] MEDS: IV NORMAL SALINE 1000ML BAG 1,000 ML IV SCH (05:39)
[2019-05-07] MEDS: HYDROmorphone 2 MG/ML VIAL IV PRN (05:42)
[2019-05-07] MEDS: HEPARIN for SUB-Q USE 5,000 UNIT/ML VIAL. SQ SCH (05:50)
[2019-05-07 07:00] VITALS: BP 128/70
[2019-05-07] MEDS: IPRATRPIUM/ALBUTEROL 0.5/2.5MG 3 ML NEBU. NEB SCH ×3 (07:36→15:28)
--- NOTE | 2019-05-07 08:12 | PDOC ---
PROGRESS NOTES Chief Complaint Chief Complaint Bladder mass Marked asymmetric thickening and irregularity of the posterior bladder,concerning for primary bladder neoplasm. 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 Additional small mixed lytic and sclerotic lesion in the L4 vertebral body, which might also represent osseous metastatic disease. Attention on follow-up imaging. Extensive inguinal, iliac chain, pelvic sidewall, and retroperitoneal lymphadenopathy likely representing metastatic disease. Lytic bone lesions on xray Hydrocele Acute renal failure - Etiology - AIN vs ATN, Hx of NSAID use. UA unremarkable,no micr hematuria or overt proteinuria CT scan Kidneys unremarkable. Supportive care, strict I/O Monitor, avoid Nephrotoxins Acute anemia Mixed osteolytic and osteoblastic lesion of the T7 vertebral body, suspicious for metastatic tumor. Mildly enlarged right axillary lymph node, 2.0 x 1.2 cm, nonspecific but concerning for troy metastasis. There are other borderline enlarged bilateral axillary and mediastinal lymph nodes as well. Recommend imaging follow-up. Opacity in the left lower lobe compatible with infiltrate or atelectasis. Pre-diabetes- per patient Plan: UROLOGY CONSULT IV PAIN CONTROL dvt prophylaxis gi prophylaxis nephrology consult ONCOLOGY CONSULT IV ANTIBIOTICS, EMPIRIC - d/c 43 min pt exam, chart review, > 50% of time spent with exam, chart review, pt care coordination History of Present Illness History of Present Illness Mr Burks is a 48yo M w/ PMHx RA, HTN who presents with complaint of pain and swelling of scrotum along with lower back pain that has been ongoing for about the last month. States his symptoms are progressively worsening. Swelling in the scrotal area goes down when he lays down and gets worse when he is upright. CT concerning for bladder mass, presumptively bladder ca per urology. 05/03 Pain not well controlled, added iv dilaudid 1.5 mg q 3 hrs prn Hem/onc following, Nephrology following, Urology following pt's family would like to discuss with the hospitalist option of transferring him to [facility]. I have contacted [facility] and was instructed by their nurse coordinator they have no "self-pay" beds. D/w patient and daughters bedside he still has LLQ pain, swelling of scrotum and now has a new pruritic red rash that began on admission that improved only slightly with hydrocortisone. D/c'd zosyn for this and negative UTI. He also c/o RLE swelling today and pain No BM. No SOB or CP. Used renewable energy trader phone with , they wish for pathologic diagnosis and charitable chemotherapy options. Vitals Vitals Vital Signs Date Time Temp Pulse Resp B/P (MAP) Pulse Ox O2 Delivery O2 Flow Rate FiO2 05/07/19 07:37 97 Room Air 05/07/19 07:17 20 05/07/19 07:00 97.9 84 128/70 (89) 97.9 Physical Exam Physical Exam Eyes: PERRLA, EOMI, conjunctiva normal, no discharge. [] Neck: Normal range of motion, no tenderness, supple, no stridor. [] Cardiovascular:Heart rate regular rhythm, no murmur [] Lungs & Thorax: Bilateral breath sounds clear to auscultation [] Abdomen: Bowel sounds normal, soft, with suprapubic tenderness. [] Skin: Warm, dry, no erythema, no rash. [] : Markedly enlarged scrotum which transilluminates with light, consistent with large hydrocele. [] Extremities: No tenderness, no cyanosis, no clubbing, ROM intact, no edema. [] Neurologic: Alert and oriented X 3, no focal deficits noted. [] General: Alert, Oriented X3, Cooperative HEENT: EOMI Heart: RRR Abdomen: Soft Extremities: No cyanosis Neuro: Normal speech, Cranial nerves 3-12 NL General: Alert, Oriented X3, Cooperative, mild distress Heart: Regular rate, Normal S1 Lungs: Clear Abdomen: Normal bowel sounds, Soft Extremities: No cyanosis Assessment and Plan Assessmemt and Plan Problems Medical Problems: (1) Bladder mass Status: Acute (2) Hydrocele in adult Status: Acute (3) Lytic bone lesions on xray Status: Acute Comment Review of Relevant I have reviewed the following items debra (where applicable) has been applied. Labs Microbiology 05/02/19 Blood Culture - Preliminary, Resulted NO GROWTH AFTER 4 DAYS 05/01/19 Urine Culture - Final, Complete 05/01/19 Urine Culture Result 1 (MALA) - Final, Complete Medications Current Medications Morphine Sulfate (Morphine Sulfate) 4 mg PRN Q15MIN PRN IV/SQ PAIN GREATER THAN 3/10 Last administered on 05/01/19at 21:17; Start 05/01/19 at 20:30; Stop 05/02/19 at 20:29; Status DC Ondansetron HCl (Zofran) 4 mg 1X ONCE IV Last administered on 05/01/19 21:17; Start 05/01/19 at 20:45; Stop 05/01/19 at 20:46; Status DC Lorazepam (Ativan Inj) 1 mg 1X ONCE IV Last administered on 05/01/19 23:14; Start 05/01/19 at 23:00; Stop 05/01/19 at 23:01; Status DC Ondansetron HCl (Zofran) 4 mg PRN Q8HRS PRN IV NAUSEA/VOMITING 1ST CHOICE; Start 05/01/19 at 23:15; Stop 05/02/19 at 23:14; Status DC Fentanyl Citrate (Fentanyl 2ml Vial) 50 mcg PRN Q1HR PRN IV SEVERE PAIN 7-10 Last administered on 05/02/19 21:36; Start 05/01/19 at 23:15; Stop 05/02/19 at 23:14; Status DC Sodium Chloride 1,000 ml @ 100 mls/hr Q10H IV Last administered on 05/02/19 12:26; Start 05/01/19 at 23:30; Stop 05/02/19 at 23:29; Status DC Heparin Sodium (Porcine) (Heparin Sodium) 5,000 unit Q8HRS SQ Last administered on 05/07/19 05:50; Start 05/02/19 at 14:00 Pantoprazole Sodium (Protonix) 40 mg DAILYAC PO Last administered on 05/07/19 05:50; Start 05/03/19 at 07:30 Sodium Chloride (Normal Saline Flush) 3 ml QSHIFT PRN IV AFTER MEDS AND BLOOD DRAWS; Start 05/02/19 at 16:30 Sodium Chloride 1,000 ml @ 100 mls/hr Q10H IV Last administered on 05/07/19 05:50; Start 05/02/19 at 16:25 Ondansetron HCl (Zofran) 4 mg PRN Q4HRS PRN IV NAUSEA/VOMITING Last administered on 05/05/19 07:52; Start 05/02/19 at 16:30 Zolpidem Tartrate (Ambien) 5 mg PRN QHS PRN PO INSOMNIA Last administered on 05/06/19 22:27; Start 05/02/19 at 16:30 Acetaminophen (Tylenol) 650 mg PRN Q4HRS PRN PO TEMP OVER 100.4F OR MILD PAIN L ast administered on 05/05/19at 05:39; Start 05/02/19 at 16:30 Al Hydroxide/Mg Hydroxide (Mylanta Plus Xs) 30 ml PRN DAILY PRN PO HEARTBURN / GAS; Start 05/02/19 at 16:30 Clonidine HCl (Catapres) 0.1 mg PRN Q6HRS PRN PO SBP>160 OR DBP>90; Start 05/02/19 at 16:30 Docusate Sodium (Colace) 100 mg PRN BID PRN PO HARD STOOLS; Start 05/02/19 at 16:30 Albuterol/ Ipratropium (Duoneb) 3 ml Q4HRS NEB Last administered on 05/07/19at 07:36; Start 05/02/19 at 16:30 Guaifenesin (Robitussin) 200 mg PRN Q4HRS PRN PO COUGH; Start 05/02/19 at 16:30 Lorazepam (Ativan) 0.5 mg PRN Q4HRS PRN PO ANXIETY / AGITATION; Start 05/02/19 at 16:30 Piperacillin Sod/ Tazobactam Sod 3.375 gm/Sodium Chloride 50 ml @ 100 mls/hr Q6HRS IV Last administered on 05/07/19at 05:50; Start 05/03/19 at 13:00 Hydromorphone HCl (Dilaudid) 1.5 mg PRN Q3HRS PRN IV PAIN Last administered on 05/07/19at 05:50; Start 05/03/19 at 16:00 Polyethylene Glycol (miraLAX PACKET) 17 gm PRN DAILY PRN PO CONSTIPATION; Start 05/04/19 at 10:00 Miconazole Nitrate (Monistat-Derm) 1 valerie BID TP Last administered on 05/06/19at 22:27; Start 05/05/19 at 15:00 Lidocaine (Lidoderm) 1 patch DAILY TD Last administered on 05/06/19at 09:29; Start 05/05/19 at 14:45 Miscellaneous (Lidoderm Patch Removal) 1 ea QHS MC Last administered on 05/06/19 at 22:27; Start 05/05/19 at 21:00 Active Scripts Active Reported Methotrexate (Methotrexate Sodium) 25 Mg/1 Ml Vial 25 Mg SQ WEEKLY Folic Acid 1 Mg Tablet 1 Tab PO DAILY Vitals/I & O Vital Sign - Last 24 Hours 05/06/19 05/06/19 05/06/19 05/06/19 11:00 11:54 12:45 13:14 Temp 98.0 98.0 Pulse 78 Resp 18 B/P (MAP) 121/72 (88) Pulse Ox 93 100 O2 Delivery Room Air Room Air Room Air Room Air 05/06/19 05/06/19 05/06/19 05/06/19 15:00 15:31 19:00 20:00 Temp 97.7 97.9 97.7 97.9 Pulse 90 89 Resp 18 18 B/P (MAP) 120/78 (92) 127/75 (92) Pulse Ox 93 95 O2 Delivery Room Air Room Air Room Air Room Air 05/06/19 05/06/19 05/06/19 05/07/19 22:27 22:53 23:35 02:50 Temp 98.9 98.9 98.9 98.9 Pulse 81 86 Resp 18 18 18 B/P (MAP) 125/71 (89) 113/66 (82) Pulse Ox 96 96 O2 Delivery Room Air Room Air Room Air Room Air 05/07/19 05/07/19 05/07/19 05/07/19 05:50 07:00 07:17 07:37 Temp 97.9 97.9 Pulse 84 Resp 20 16 20 B/P (MAP) 128/70 (89) Pulse Ox 95 97 O2 Delivery Room Air Room Air Room Air Room Air Intake and Output 05/06/19 05/06/19 05/07/19 14:59 22:59 06:59 Intake Total 120 ml Output Total 475 ml 300 ml 1175 ml Balance -475 ml -180 ml -1175 ml TAMIKA ALCANTAR MD May 07, 2019 08:12
[2019-05-07 08:30] VITALS: BP 134/50
--- NOTE | 2019-05-07 09:29 | PDOC ---
SUBJECTIVE Subjective S: doing OK O: Physical exam: Gen.: in the bathroom, thus rest of exam deferred but spoke with his and an oyster shipper via phone Labs: Creatinine 1.9, hemoglobin 9.5, calcium 8.4, albumin 2.6 Rads: CT chest showed mixed lytic/blastic lesion at T7, right axillary lymph nodes to 1.2 cm in short axis, bilateral axillary and mediastinal lymph nodes slightly enlarged, left lower lobe atelectasis/infiltrate Skeletal survey showed lytic destructive lesion at left iliac, consider bone scan Assessment and Plan: He is a 48-year-old Chinese man with concern for metastatic bladder cancer to lymph nodes and bones, stage IV, unfortunately without insurance, and not a [place] citizen. Concern for bladder cancer: urine cytology has been ordered. Treatment options include chemotherapy plus or minus radiotherapy, however unfortunately without insurance I think treatment options may be limited, typically a biopsy is preferred prior to administering chemo, molecular testing could be done but I don't know that tx is possible again without insurance, therefore have asked Mrs. Jonas to see if potential [facility] hospice services may be available if we cannot actively treat, a family meeting is planned today at 11. Lack of insurance: Social work and pall care appreciated Constipation: he has when necessary's disposition: Per others, we will continue to follow as needed, and can follow up as an outpatient if insurance availability though doubt this will be a possibility, typically self pay is financially prohibitive as well Thank you kindly, I will return on Sunday but Dr Hidalgo is avail for ?s in the interim. OBJECTIVE Vital Signs Vital Signs Date Time Temp Pulse Resp B/P (MAP) Pulse Ox O2 Delivery O2 Flow Rate FiO2 05/07/19 08:00 Room Air 05/07/19 07:37 97 Room Air 05/07/19 07:17 20 Room Air 05/07/19 07:00 97.9 84 16 128/70 (89) 95 Room Air 97.9 05/07/19 05:50 20 Room Air 05/07/19 02:50 98.9 86 18 113/66 (82) 96 Room Air 98.9 05/06/19 23:35 Room Air 05/06/19 22:53 98.9 81 18 125/71 (89) 96 Room Air 98.9 05/06/19 22:27 18 Room Air 05/06/19 20:00 Room Air 05/06/19 19:00 97.9 89 18 127/75 (92) 95 Room Air 97.9 05/06/19 15:31 Room Air 05/06/19 15:00 97.7 90 18 120/78 (92) 93 Room Air 97.7 05/06/19 13:14 Room Air 05/06/19 12:45 Room Air 05/06/19 11:54 100 Room Air 05/06/19 11:00 98.0 78 18 121/72 (88) 93 Room Air 98.0 I & O Intake and Output 05/07/19 07:00 Intake Total 120 ml Output Total 1950 ml Balance -1830 ml Intake Oral 120 ml Output Urine Total 1950 ml # Voids 1 RIZWAN STEELE MD May 07, 2019 09:29
--- NOTE | 2019-05-07 09:45 | PDOC ---
[employer] WORK[employer] COMPENSATION COORDINATOR 05/07/19 0944: Provider Note Provider Note Spoke with patient's RN. They are considering [facility] for patient, ok with Urology. We would like him to have a bone scan, ok for him to have as an outpatient if he discharges home today. RN verbalized understanding and will coordinate. BUNNY MONTEIRO MD 05/08/19 1612: Provider Note Provider Note Agree with assessment and plan. GERMAN JERRY APRN May 07, 2019 09:44 BUNNY MONTEIRO MD May 08, 2019 16:12
--- NOTE | 2019-05-07 10:09 | PDOC ---
SUBJECTIVE ROS Stable , c/o Rt Leg swelling OBJECTIVE Vital Signs Vital Signs Date Time Temp Pulse Resp B/P (MAP) Pulse Ox O2 Delivery O2 Flow Rate FiO2 05/07/19 08:00 Room Air 05/07/19 07:37 97 05/07/19 07:17 20 05/07/19 07:00 97.9 84 128/70 (89) 97.9 I & 0 Intake and Output 05/07/19 07:00 Intake Total 120 ml Output Total 1950 ml Balance -1830 ml Intake Oral 120 ml Output Urine Total 1950 ml # Voids 1 PHYSICAL EXAM Physical Exam General: NAD HEENT: OM moist Neck supple Heart: RRR Lungs CTA Abdomen: Soft, NT Extremities:Rt LE edema- trace to 1+ Neuro: Normal speech, Cranial nerves 3-12 NL Psych/Mental Status: Mental status NL, Mood NL - NO Batres , scrotal edema Skin No rash DIAGNOSIS/ASSESSMENT Assessment & Plan RIKI - Baseline unknown Etiology - AIN vs ATN, Hx of NSAID use Stable renal function UA unremarkable,no micr hematuria or overt proteinuria CT scan Kidneys unremarkable Supportive care, strict I/O Monitor, avoid Nephrotoxins Bladder mass- Marked asymmetric thickening and irregularity of the posterior bladder,concerning for primary bladder neoplasm. 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 Additional small mixed lytic and sclerotic lesion in the L4 vertebral body, which might also represent osseous metastatic disease. Extensive inguinal, iliac chain, pelvic sidewall, and retroperitoneal lymphadenopathy likely representing metastatic disease. Lytic bone lesions on xray Hem/onc following NSAID use- recently Hydrocele - Per urology Anemia- suspect sec to above Stable Hgb 11 Pre=diabetes- per patient Pt's family would like to discuss with the hospitalist option of transferring him to [facility] Informed RN COMMENT/RELEVANT DATA Meds Current Medications Medications (Trade) Dose Ordered Sig/Harley Start Time Stop Time Status Last Admin Dose Admin Acetaminophen (Tylenol) 650 mg PRN Q4HRS PRN 05/02/19 16:30 05/05/19 05:39 650 MG Al Hydroxide/Mg Hydroxide (Mylanta Plus Xs) 30 ml PRN DAILY PRN 05/02/19 16:30 Albuterol/ Ipratropium (Duoneb) 3 ml Q4HRS 05/02/19 16:30 05/07/19 07:36 3 ML Clonidine HCl (Catapres) 0.1 mg PRN Q6HRS PRN 05/02/19 16:30 Docusate Sodium (Colace) 100 mg PRN BID PRN 05/02/19 16:30 Fentanyl Citrate (Fentanyl 2ml Vial) 50 mcg PRN Q1HR PRN 05/01/19 23:15 05/02/19 23:14 DC 05/02/19 21:36 50 MCG Guaifenesin (Robitussin) 200 mg PRN Q4HRS PRN 05/02/19 16:30 Heparin Sodium (Porcine) (Heparin Sodium) 5,000 unit Q8HRS 05/02/19 14:00 05/07/19 05:50 5,000 UNIT Hydromorphone HCl (Dilaudid) 1.5 mg PRN Q3HRS PRN 05/03/19 16:00 05/07/19 05:50 1.5 MG Lidocaine (Lidoderm) 1 patch DAILY 05/05/19 14:45 05/06/19 09:29 1 PATCH Lorazepam (Ativan Inj) 1 mg 1X ONCE 05/01/19 23:00 05/01/19 23:01 DC 05/01/19 23:14 1 MG Lorazepam (Ativan) 0.5 mg PRN Q4HRS PRN 05/02/19 16:30 Miconazole Nitrate (Monistat-Derm) 1 valerie BID 05/05/19 15:00 05/06/19 22:27 1 VALERIE Miscellaneous (Lidoderm Patch Removal) 1 ea QHS 05/05/19 21:00 05/06/19 22:27 1 EA Morphine Sulfate (Morphine Sulfate) 4 mg PRN Q15MIN PRN 05/01/19 20:30 05/02/19 20:29 DC 05/01/19 21:17 4 MG Ondansetron HCl (Zofran) 4 mg PRN Q4HRS PRN 05/02/19 16:30 05/05/19 07:52 4 MG Pantoprazole Sodium (Protonix) 40 mg DAILYAC 05/03/19 07:30 05/07/19 05:50 40 MG Piperacillin Sod/ Tazobactam Sod 3.375 gm/Sodium Chloride 50 ml @ 100 mls/hr Q6HRS 05/03/19 13:00 05/07/19 05:50 100 MLS/HR Polyethylene Glycol (miraLAX PACKET) 17 gm PRN DAILY PRN 05/04/19 10:00 Sodium Chloride 1,000 ml @ 100 mls/hr Q10H 05/02/19 16:25 05/07/19 05:50 100 MLS/HR Sodium Chloride (Normal Saline Flush) 3 ml QSHIFT PRN 05/02/19 16:30 Zolpidem Tartrate (Ambien) 5 mg PRN QHS PRN 05/02/19 16:30 05/06/19 22:27 5 MG Results All relevant outside records, renal labs, imaging studies, telemetry/EKG's were reviewed. EDITA GRAHAM MD May 07, 2019 10:09
[2019-05-07 10:28] LABS: CALCIUM 9.1 mg/dL (8.5-10.1); CREATININE 2.1 mg/dL (0.7-1.3); GFR 33.6
[2019-05-07 11:00] VITALS: BP 118/71
[2019-05-07] MEDS: LIDOCAINE (700MG/PATCH) PATCH. TD SCH (11:14)
[2019-05-07] MEDS: MICONAZOLE NITRATE 2% TOPICAL CREAM 28GM TUBE. TP SCH (11:15)
--- NOTE | 2019-05-07 11:51 | NUR ---
SS following up with discharge planning. HCFS continuing to follow for slef pay status. Pt not a citizen. Palliative care following. Pt and family requesting transfer to [facility] on the [place] for second opinion. SS contacted [facility], ; fax [phone], and made request for transfer. SS faxed [facility] demographic information as requested. SS will await acceptance decision and will proceed accordingly.
[2019-05-07 15:00] VITALS: BP 110/68
--- NOTE | 2019-05-07 15:07 | PATHOLOGY ---
Note [facility] Accession Number: [id number] TESTS RESULT FLAG UNITS REF RANGE LAB Clinician Provided Cytology Information No. of containers..01 Other (Miscellaneous) Source: URINE DIAGNOSIS: URINE INCONCLUSIVE. ATYPICAL UROTHELIAL CELLS ARE PRESENT. VIRAL CYTOPATHIC EFFECT (POLYOMAVIRUS) IS IDENTIFIED. Pathologist ICD10: 02 R82.8, B34.9 Signed out by: Layton Cid MD, Pathologist NPI- [id number] Performed by: Ivory Medina, [employer] ([facility]) Gross description: 110ML, YELLOW, CLOUDY /LCS FLAG LEGEND: L-Low Normal,H-High Normal,LL-Alert Low,HH-Alert High <-Panic Low,>-Panic High,A-Abnormal,AA-Critical Abnormal Performed at: [facility] [address] [place] [address] Kevin Suh MD, [facility] [address] [place] [address] Layton Cid MD, Specimen Comment: A courtesy copy of this report has been sent to Specimen Comment: [phone], , . Specimen Comment: Report sent to ,DR LARIOS / DR STEELE Performed at: 01 [facility] [address], [place], [place] [id number] MD Kevin Suh MD Phone: [phone]
--- NOTE | 2019-05-07 15:27 | PDOC2 ---
PALLIATIVE CARE Palliative Care Note Palliative Care Patient alert. Sitting up in bed visiting with family. Received Dilaudid IV at 0500 this am. Met with patient , , Kamla, daughter Desirae, niece, sister and family friend Camryn. Reviewed current medical condition; Bladder Mass, lytic lesions. acute renal failure, enlarged lymph nodes, anemia, Abdoulaye RN assisted with interpretation. Family requesting to go to [facility] for second opinion. Discussed options of chemotherapy tx. vs comfort care. Patient and family prefer to go to [facility]. Priscilla CHATTERJEE has faxed face sheet to [facility]. Await response. DESTINEE CHAWLA May 07, 2019 15:26
--- NOTE | 2019-05-07 15:28 | PDOC3 ---
Discharge Summary Visit Information Date of Admission: May 01, 2019 Date of Discharge: May 07, 2019 Admitting Diagnosis: Intractable abdominal pain Final Diagnosis Problems Medical Problems: (1) Bladder mass Status: Acute (2) Hydrocele in adult Status: Acute (3) Lytic bone lesions on xray Status: Acute Brief Hospital Course Allergies Allergies Coded Allergies Type Severity Reaction Last Updated Verified No Known Drug Allergies 05/01/19 No Vital Signs Vital Signs Date Time Temp Pulse Resp B/P (MAP) Pulse Ox O2 Delivery O2 Flow Rate FiO2 05/07/19 11:53 Room Air 05/07/19 11:00 97.9 89 16 118/71 (87) 95 97.9 Lab Results Laboratory Tests Test 05/07/19 09:32 Sodium Level 143 mmol/L (136-145) Potassium Level 4.0 mmol/L (3.5-5.1) Chloride Level 108 mmol/L (98-107) Carbon Dioxide Level 26 mmol/L (21-32) Anion Gap 9 (6-14) Blood Urea Nitrogen 11 mg/dL (8-26) Creatinine 2.1 mg/dL (0.7-1.3) Estimated GFR (Cockcroft-Gault) 33.6 Glucose Level 100 mg/dL (70-99) Calcium Level 9.1 mg/dL (8.5-10.1) Laboratory Tests Test 05/07/19 09:32 Sodium Level 143 mmol/L (136-145) Potassium Level 4.0 mmol/L (3.5-5.1) Chloride Level 108 mmol/L (98-107) Carbon Dioxide Level 26 mmol/L (21-32) Anion Gap 9 (6-14) Blood Urea Nitrogen 11 mg/dL (8-26) Creatinine 2.1 mg/dL (0.7-1.3) Estimated GFR (Cockcroft-Gault) 33.6 Glucose Level 100 mg/dL (70-99) Calcium Level 9.1 mg/dL (8.5-10.1) Brief Hospital Course Mr Burks is a 48yo M w/ PMHx RA, HTN who presents with complaint of pain and swelling of scrotum along with lower back pain that has been ongoing for about the last month. States his symptoms are progressively worsening. Swelling in the scrotal area goes down when he lays down and gets worse when he is upright. CT concerning for bladder mass, presumptively bladder ca per urology. 05/03 Pain not well controlled, added iv dilaudid 1.5 mg q 3 hrs prn Hem/onc following, Nephrology following, Urology following. His renal function remained stable, cr 2.1, still with pain Pt's family would like to discuss with the hospitalist option of transferring him to [facility]. I have contacted [facility] and was instructed by their nurse coordinator they have no "self-pay" beds. D/w patient and daughters bedside he still has LLQ pain, swelling of scrotum and now has a new pruritic red rash that began on admission that improved only slightly with hydrocortisone. D/c'd zosyn for this and negative UTI. He also c/o RLE swelling today and pain No BM. No SOB or CP. Used csr technician phone with and family, taoism members, they wish for pathologic diagnosis and charitable chemotherapy options which we have not been able to offer at [facility]. Instead has been referred to Hospice for charitable options. Of note, his urine cytology is available, shows atypical urothelial cells and vi ral cytopathic effect (polyomavirus) identified. Had RLE extremity venous doppler negative for DVT, was discharged into the care of his family Assessment: Bladder mass Marked asymmetric thickening and irregularity of the posterior bladder,concerning for primary bladder neoplasm. 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 Additional small mixed lytic and sclerotic lesion in the L4 vertebral body, which might also represent osseous metastatic disease. Attention on follow-up imaging. Extensive inguinal, iliac chain, pelvic sidewall, and retroperitoneal lymphadenopathy likely representing metastatic disease. Lytic bone lesions on xray Hydrocele Acute renal failure - Etiology - AIN vs ATN, Hx of NSAID use. UA unremarkable,no micr hematuria or overt proteinuria CT scan Kidneys unremarkable. Supportive care, strict I/O Monitor, avoid Nephrotoxins Acute anemia Mixed osteolytic and osteoblastic lesion of the T7 vertebral body, suspicious for metastatic tumor. Mildly enlarged right axillary lymph node, 2.0 x 1.2 cm, nonspecific but concerning for troy metastasis. There are other borderline enlarged bilateral axillary and mediastinal lymph nodes as well. Recommend imaging follow-up. Opacity in the left lower lobe compatible with infiltrate or atelectasis. Pre-diabetes- per patient Plan: UROLOGY CONSULT IV PAIN CONTROL dvt prophylaxis gi prophylaxis nephrology consult ONCOLOGY CONSULT IV ANTIBIOTICS, EMPIRIC - d/c 43 min pt exam, chart review, > 50% of time spent with exam, chart review, pt care coordination Discharge Information Condition at Discharge: Improved Follow Up: Weeks Disposition/Orders: D/C to Home Scheduled Folic Acid (Folic Acid) 1 Mg Tablet, 1 TAB PO DAILY for supplement, #90 Ref 1 (Reported) Entered as Reported by: KAREN ARIAS on 05/02/191118 Last Action: New Order on 05/02/191118 by KAREN ARIAS Methotrexate Sodium (Methotrexate) 25 Mg/1 Ml Vial, 25 MG SQ WEEKLY for cancer, (Reported) Entered as Reported by: KAREN ARIAS on 05/02/191118 Last Action: New Order on 05/02/191118 by TAMIKA ATWOOD MD May 07, 2019 15:28
[2019-05-07] MEDS ORDERED: PANT40TA77 PO (15:33)
[2019-05-07] MEDS ORDERED: MICO14CR TP (15:33)
[2019-05-07] MEDS ORDERED: OXYC5CAP PO (15:33)
[2019-05-07] MEDS ORDERED: LORA0.5T96 PO (15:33)
--- NOTE | 2019-05-07 15:39 | RAD ---
RIGHT LEG VENOUS DOPPLER STUDY: Clinical indications: Right leg swelling and pain. Findings: Duplex sonography (including maza scale evaluation and color flow and waveform spectral analysis) of the proximal aspect of the greater saphenous vein and proximal aspect of the profunda femoral vein and the entire length of the common femoral and superficial femoral and popliteal veins and the tibioperoneal trunk and the proximal aspect of the posterior tibial and peroneal veins of the right leg was performed. Normal compressibility, augmentation of color Doppler flow after calf compression, and respiratory variation of Doppler flow is seen. Thus, there are no sonographic findings of deep venous thrombosis within these veins. Impression: There are no sonographic findings of deep venous thrombosis within the veins discussed above of the right lower extremity. Right groin lymph nodes are seen and the largest measures 3.6 cm. Electronically signed by: Wolf Ramirez MD (05/07/2019 3:36 PM) [id number]
--- NOTE | 2019-05-07 16:30 | NUR ---
Pt discharged home and self care. IV removed without complications. Discharge instructions discussed with family. Pt assisted into wheelchair and was taken to ED entrance and secured in vehicle with daughter.
== END 2019-05-07 16:15 | disposition home or self-care (01) | DRG 687 ==
LOC: ER 17:48 → 4 NORTH 23:00
PROVIDERS: ADMIT Internal Medicine; ATTEND Internal Medicine
DX: C67.9 Malignant neoplasm of bladder, unspecified (principal); L03.90 Cellulitis, unspecified; N17.9 Acute kidney failure, unspecified; C79.51 Secondary malignant neoplasm of bone; D63.1 Anemia in chronic kidney disease; I12.9 Hypertensive chronic kidney disease with stage 1 through stage 4 chronic kidney disease, or unspecified chronic kidney disease; K59.00 Constipation, unspecified; M06.9 Rheumatoid arthritis, unspecified; N18.9 Chronic kidney disease, unspecified; R73.03 Prediabetes; M19.90 Unspecified osteoarthritis, unspecified site; N43.3 Hydrocele, unspecified; K62.82 Dysplasia of anus; M79.89 Other specified soft tissue disorders; Z80.8 Family history of malignant neoplasm of other organs or systems; Z82.49 Family history of ischemic heart disease and other diseases of the circulatory system
CPT/HCPCS: 36415; 71045; 71250; 74176; 76870; 77075; 80048; 80053; 80069; 81001; 82105; 83615; 83690; 84702; 85025; 85610; 87040; 87086; 88112; 93971; 94640; 94760; 96374; 96375; G0103; J1170; J1644; J2060; J2270; J2405; J2543; J3010; J7030; J7620; 84704; 99285-25; G0378